=== PATIENT | male | born 1975 | race Hispanic/Latino ===

== ENCOUNTER 2018-10-13 15:11 | Emergency (ER) | payer SELFPAY ==
[2018-10-13 16:04] LABS: Hemoglobin 15.5 g/dL (14.0-18.0); Mean Corpuscular HGB CONC 34.1 g/dL (32.0-36.0); Mean Corpuscular Volume 93.8 fL (78.0-98.0); Mean Platelet Volume 11.2 fL (7.4-10.4); Platelet Count 188 thou/uL (130-400); RBC Distribution Width 12.1 % (11.5-14.5); Red Blood Cell (RBC) Count 4.86 mill/uL (4.70-6.10)
[2018-10-13 16:21] LABS: ALT (SGPT) 33 U/L (8-55); AST (SGOT) 13 U/L (5-34); Alkaline Phosphatase 155 U/L (40-150); Anion Gap 15 mmol/L (10-20); BUN (Urea Nitrogen) 9 mg/dL (8.9-20.6); Calc. Creatinine Clearance 0 mL/min (70-130); Calcium 9.7 mg/dL (7.8-10.44); Carbon Dioxide 19 mmol/L (22-29); Chloride 99 mmol/L (98-107); Estimated GFR-MDRD Greater than 90; Globulin 3.7 g/dL (2.4-3.5); Glucose 357 mg/dL (70-105); Lipase 115 U/L (8-78); Potassium 4.1 mmol/L (3.5-5.1); Protein, Total 7.7 g/dL (6.0-8.3); Sodium 129 mmol/L (136-145)
[2018-10-13] MEDS ORDERED: Ondansetron PF 4 MG/2 ML Vial ONE (16:31)
[2018-10-13] MEDS ORDERED: Morphine 2 MG/ML SYRINGE ONE (16:31)
[2018-10-13 16:32] LABS: Band 4 % (5-11); Eosinophils 2 % (0-10); Lymphocytes 5 % (21-51); MDiff Complete? YES; Monocytes 3 % (0-10); Neutrophil 86 % (42-75); PLT Morphology Comment Appears Adequate
[2018-10-13 16:41] LABS: Bilirubin Negative (Negative); Blood, Urine Trace (Negative); Clarity CLEAR (Clear); Glucose, Urine (Dipstick) >=1000 mg/dL (Negative); Leukocyte Negative (Negative); Nitrite Negative (Negative); Protein, Urine (Dipstick) 30 mg/dL (Neg-Trace); Specific Gravity, Urine 1.044 (1.002-1.036); Urobilinogen 0.2 mg/dL (0.2-1.0); pH, Urine 5.5 (5.0-9.0)
[2018-10-13 16:43] LABS: Bacteria/HPF None Seen HPF (None Seen); Hyaline Casts/LPF 0-3 HYALINE CAST LPF (0-3 Hyaline); RBC/HPF 0-3 HPF (0-3); Squamous Epithelial 0-3 HPF (0-3); WBC/HPF 0-3 HPF (0-3)
--- NOTE | 2018-10-13 16:55 | RAD ---
PORTABLE CHEST: Date: 10/13/18 PROVIDED CLINICAL HISTORY: Shortness of breath and generalized weakness. FINDINGS: Comparison with 02/17/17. Cardiac and mediastinal silhouette is within normal limits. There is no focal consolidation, pleural fluid, or pneumothorax apparent. IMPRESSION: No evidence for an acute cardiopulmonary process. POS: OFF
[2018-10-13 18:33] LABS: Glucose Accucheck Confirmation 269 mg/dl (70-105)
== END 2018-10-13 19:57 | disposition home or self-care (01) ==
LOC: ERS 15:11
DX: E86.0 Dehydration (principal); E11.9 Type 2 diabetes mellitus without complications; F17.210 Nicotine dependence, cigarettes, uncomplicated
CPT/HCPCS: 36415; 71045; 80053; 81003; 81015; 83690; 85025; 93005; 96361; 96374; 96375; J2270; J2405

== ENCOUNTER 2018-10-31 07:59 | Inpatient (IN) | payer SELFPAY ==
[2018-10-31 08:43] LABS: #Lymphocytes 1.6 thou/uL (1.20-3.40); #Monocytes 0.5 thou/uL (0.11-0.59); #Neutrophils 12.2 thou/uL (1.40-6.50); %Basophils 0.2 % (0.0-1.0); %Eosinophils 0.2 % (0.0-10.0); %Monocytes 3.4 % (0.0-10.0); %Neutrophils 85.1 % (42.0-75.0); Hemoglobin 15.7 g/dL (14.0-18.0); Mean Corpuscular Volume 91.4 fL (78.0-98.0); Mean Platelet Volume 11.2 fL (7.4-10.4); Platelet Count 185 thou/uL (130-400); RBC Distribution Width 12.6 % (11.5-14.5); Red Blood Cell (RBC) Count 4.91 mill/uL (4.70-6.10); White Blood Cell (WBC) Count 14.4 thou/uL (4.8-10.8)
[2018-10-31 08:51] LABS: ALT (SGPT) 32 U/L (8-55); AST (SGOT) 16 U/L (5-34); Alkaline Phosphatase 165 U/L (40-150); Anion Gap 23 mmol/L (10-20); BUN (Urea Nitrogen) 7 mg/dL (8.9-20.6); Bilirubin, Total 0.8 mg/dL (0.2-1.2); Calc. Creatinine Clearance 0 mL/min (70-130); Carbon Dioxide 13 mmol/L (22-29); Chloride 100 mmol/L (98-107); Estimated GFR-MDRD Greater than 90; Globulin 4.2 g/dL (2.4-3.5); Glucose 281 mg/dL (70-105); Potassium 4.1 mmol/L (3.5-5.1); Protein, Total 8.2 g/dL (6.0-8.3); Sodium 132 mmol/L (136-145)
[2018-10-31] MEDS ORDERED: Nicotine 21 MG PATCH TD PRN ×2 (09:00→13:40)
[2018-10-31 09:22] LABS: Lactic Acid 1.2 mmol/L (0.5-2.2)
[2018-10-31 09:28] LABS: Bicarbonate (HCO3v) 21.5 mmol/L (22.0-29.0); CO2 Tension (PvCO2) 33.2 mmHg (41.0-51.0); Calcium, Ionized 1.11 mmol/L (1.12-1.32); Hemoglobin - Calc 16.5 g/dL (12.0-18.0); O2 Tension (PvO2) 89.3 mmHg (35.0-45.0); T. Carbon Dioxide 22.6 mmol/L (1.0-85.0); vO2 Saturation-calc 97.2 % (94-98)
[2018-10-31] MEDS ORDERED: Morphine 4 MG/ML VIAL ONE (10:16)
--- NOTE | 2018-10-31 10:58 | CT ---
CT ABDOMEN WITH CONTRAST CT PELVIS WITH CONTRAST: DATE: 10/31/18 HISTORY: 43-year-old male with lower abdominal pain. COMPARISON: 02/17/17. TECHNIQUE: IV injection of iodinated contrast media: 100 mL [id number]. Oral contrast media: Not administered. FINDINGS: In a similar appearance to that of the previous CT, the head of the pancreas is enlarged, and surroun ded by extensive fat stranding representing edema fluid. The adjacent portions of the duodenum that a re in contact with this, namely the second stage and proximal third stage, have diffuse mural thicken ing. No pancreatic ductal dilation. Normal pancreatic body and tail. Diffusely low hepatic attenuation consistent with fatty liver. Bilateral kidneys, abdominal aorta, ad renals, spleen, appendix, and urinary bladder are normal. Multiple sigmoid and descending colonic div erticulosis without diverticulitis. No organized fluid collection. No small bowel dilation. No free f luid within the pelvic cavity. No pneumoperitoneum. Lung bases are grossly clear. IMPRESSION: 1. Recurrent acute pancreatitis. 2. No evidence of pancreatic pseudocyst or abscess. 3. Hepatic steatosis. JNR POS: ADONIS
[2018-10-31 11:18] LABS: Bilirubin Negative (Negative); Blood, Urine Negative (Negative); Clarity CLEAR (Clear); Glucose, Urine (Dipstick) >=1000 mg/dL (Negative); Leukocyte Negative (Negative); Nitrite Negative (Negative); Protein, Urine (Dipstick) 30 mg/dL (Neg-Trace); Urobilinogen 0.2 mg/dL (0.2-1.0); pH, Urine 5.5 (5.0-9.0)
[2018-10-31 11:21] LABS: Bacteria/HPF None Seen HPF (None Seen); Hyaline Casts/LPF 0-3 HYALINE CAST LPF (0-3 Hyaline); RBC/HPF 0-3 HPF (0-3); Squamous Epithelial 0-3 HPF (0-3); WBC/HPF 0-3 HPF (0-3)
[2018-10-31 11:24] LABS: Specific Gravity, Urine 1.045 (1.002-1.036)
[2018-10-31] MEDS ORDERED: Bisacodyl 5 MG TAB PO PRN (13:40)
[2018-10-31] MEDS ORDERED: Loperamide HCl 2 MG CAP PO PRN (13:40)
[2018-10-31] MEDS ORDERED: Acetaminophen 325 MG TAB PO PRN (13:40)
[2018-10-31] MEDS ORDERED: Bisacodyl 10 MG SUPP PR PRN (13:40)
[2018-10-31] MEDS ORDERED: Eucerin (Mineral Oil/Petrolatum,White) 30 gm Jar TOP PRN (13:40)
[2018-10-31] MEDS ORDERED: HumaLOG 300 UNITS/3 ML VIAL SC PRN (13:40)
[2018-10-31] MEDS ORDERED: Cepastat Lozenges 1 LOZ PO PRN (13:40)
[2018-10-31] MEDS ORDERED: Loratadine 10 MG TAB PO PRN (13:40)
[2018-10-31] MEDS ORDERED: Ondansetron PF 4 MG/2 ML Vial IVP PRN (13:40)
[2018-10-31] MEDS ORDERED: Zolpidem Tartrate 5 MG TAB PO PRN (13:40)
[2018-10-31] MEDS ORDERED: Ondansetron ODT 4 MG TAB PO PRN (13:40)
[2018-10-31] MEDS ORDERED: HYDROcodone/Acetaminophen 5/325 mg Tablet PO PRN (13:40)
[2018-10-31] MEDS ORDERED: Artificial Tears 18 DROP/0.9 ML EA EYE PRN (13:40)
[2018-10-31] MEDS ORDERED: Dextrose 5% in Water 1,000 ML IV PRN (13:40)
[2018-10-31] MEDS ORDERED: Dextrose 50% Abboject 50 ML SYRINGE SLOW IVP PRN (13:40)
[2018-10-31] MEDS ORDERED: hydrALAZINE 20 MG/ML VIAL SLOW IVP PRN (13:40)
[2018-10-31] MEDS ORDERED: Diabetic Tussin 200 MG/10 ML UDCUP PO PRN (13:40)
[2018-10-31] MEDS ORDERED: Senokot S 8.6-50 MG TAB PO PRN (13:40)
[2018-10-31] MEDS ORDERED: Sodium Chloride 0.65% Nasal 44 ML BOT EA NARE PRN (13:40)
[2018-10-31] MEDS ORDERED: Morphine 4 MG/ML VIAL SLOW IVP PRN (13:40)
[2018-10-31 13:42] VITALS: BMI 29.2
[2018-10-31] MEDS: Sodium Chloride 0.9% 1,000 ML IV SCH ×2 (14:14→21:43)
--- NOTE | 2018-10-31 15:50 | HP ---
PRIMARY CARE PHYSICIAN: [facility] call admission. REASON FOR ADMISSION: Acute pancreatitis. HISTORY OF PRESENT ILLNESS: A 43-year-old male, who speaks Frisian only, but he has family friend presented with him who interpreted for me. The patient has a 2-week history of gradually increasing abdominal pain. For last 2 to 3 days, his abdominal pain has gotten worse. His abdominal pain is periumbilical radiating to back associated with nausea and vomiting. He also reports that with food, pain is getting worse. He denies any abdominal distention. He denies any fever or chills. He denies any alcohol abuse. He denies any new medication. He denies any herbal medication. He denies any joint pain. He denies any weight loss. He denies any diarrhea, constipation, melena, or hematochezia. The patient reports that he had this type of problem in past, but he is not able to tell more detail. He required hospitalization and he was told that he had pancreatitis and stayed in hospital for 3 days. REVIEW OF SYSTEMS: CONSTITUTIONAL: Negative for weight loss or gain, ability to conduct usual activities. SKIN: Negative for rash, itching. EYES: Negative for double vision, pain. ENT/MOUTH: Negative for nose bleeding, neck stiffness, pain, tenderness. CARDIOVASCULAR: Negative for palpitations, dyspnea on exertion, orthopnea. RESPIRATORY: Negative for shortness of breath, wheezing, cough, hemoptysis, fever or night sweats. GASTROINTESTINAL: Negative for poor appetite, abdominal pain, heartburn, nausea, vomiting, constipation, or diarrhea. GENITOURINARY: Negative for urgency, frequency, dysuria, nocturia. MUSCULOSKELETAL: Negative for pain, swelling. NEUROLOGIC/PSYCHIATRIC: Negative for anxiety, depression. ALLERGY/IMMUNOLOGIC: Negative for skin rash, bleeding tendency. Please see my HPI for pertinent positive and negative. All other review of system reviewed and negative expect as mentioned in the HPI. PAST MEDICAL HISTORY: Diabetes type 2 and history of pancreatitis. PAST SURGICAL HISTORY: Left elbow surgery. PAST PSYCHIATRIC HISTORY: Reviewed and negative. SOCIAL HISTORY: The patient is smoking one pack per day. He denies any alcohol abuse. He denies any other illicit drug abuse. FAMILY HISTORY: No family history of coronary artery disease, stroke, or cancer. ALLERGIES: NO KNOWN DRUG ALLERGIES. CURRENT HOME MEDICATIONS: Metformin 500 mg p.o. b.i.d. EMERGENCY ROOM COURSE: The patient has received IV fluid and he was given morphine for pain. PHYSICAL EXAMINATION: VITAL SIGNS: Currently, blood pressure 143/83, pulse 72, respiratory rate 18, temperature 98.7, saturation 96% on the room air. Weight 83.1 kg. GENERAL: The patient is currently alert and awake, in no obvious acute distress. HEAD: Normocephalic and atraumatic. EYES: Pupil, round, and reactive to light. Extraocular muscle intact. ENT: Oropharynx within normal limit. Moist mucous membrane. No oral lesion. No pharyngeal erythema. No exudate. NECK: Supple. No JVD. No thyromegaly. No carotid bruits. No jugular venous distention. LUNGS: Clear to auscultation without any rhonchi or rales. CARDIAC: S1 and S2, regular. No murmur. No gallop. No rub. ABDOMEN: Epigastric tenderness. No peritoneal sign. No guarding. No rigidity. No rebound. BACK: Unremarkable. No CVA tenderness. EXTREMITIES: Upper extremity; passive movement of all joints is normal. Lower extremity; no edema. Good distal pulsation. SKIN: No skin rash. HEMATOLOGICAL SYSTEM: No lymphadenopathy. NEUROLOGIC: Nonfocal examination. The patient moves all four limbs. Plantar bilateral flexor. PSYCHIATRIC: Normal affect. SIGNIFICANT LABORATORY DATA: CT abdomen and pelvis reviewed by me and consistent with fatty liver, acute pancreatitis. No evidence of pancreatic abscess or pseudocyst. CBC; WBC 14.4, hemoglobin 15.7, and platelet 185. ABG; pH 7.42, bicarbonate 21.5, CO2 of 33.2, and O2 of 89.3. BMP; sodium 132, potassium 4.1, chloride 100, carbon dioxide 13, anion gap 23, BUN 7, creatinine 0.75, glucose 281, calcium 9.0. LFT; AST 16, ALT 32, alkaline phosphatase 165, albumin 4.0, and lipase 11. Urinalysis; glycosuria, ketonuria, and serum ketones 1.87. ASSESSMENT AND PLAN: 1. Acute pancreatitis. I am suspecting his pancreatitis likely related with hypertriglyceridemia which we need to exclude. At this point, I will check lipid profile tomorrow morning. We will treat his acute pancreatitis in a standard fashion with n.p.o. except ice chips. His pain will be controlled with morphine p.r.n. basis. He will be given IV fluid with NS at 125 mL/hr. Incentive spirometry advised. He does not have any Benton sign, so does not suspect any gallbladder related problem, but we will obtain ultrasound gallbladder to look for any pathology. We will monitor his lipase. When the patient's pain is well controlled, at that point, we will start liquid diet and advance into low fat diabetic diet. At that point, we will consider discharging him home. 2. Hyponatremia, likely due to pseudohyponatremia or from volume depletion. We will continue with NS at 125 mL per hour and we will repeat BMP tomorrow. 3. Diabetes type 2, not well controlled. We will continue with insulin as per sliding scale per protocol. We will check hemoglobin A1c. 4. Metabolic acidosis, likely due to volume contraction. The patient will be given IV fluid. He also has mild serum ketones elevated. We will repeat BMP tomorrow and we will also repeat other electrolytes including magnesium and phosphorus. 5. Tobacco abuse disorder. Smoking cessation counseling given. Healthy lifestyle measures discussed with the patient. 6. Deep vein thrombosis prophylaxis, Lovenox 40 mg subcu daily. 7. Gastrointestinal prophylaxis, Pepcid 20 mg IV b.i.d. 8. Code status: The patient is full code. The patient does not have any surrogate decision maker. 9. Disposition plan: Based on clinical course, we are expecting the patient to stay in hospital 2 to 3 days. Job ID: [id number]
[2018-10-31] MEDS ORDERED: Iopamidol 370 76% 100 ML VIAL ONE (16:16)
[2018-10-31] MEDS: Famotidine/PF 20 mg/2ml Vial SLOW IVP SCH (21:13)
[2018-11-01 05:04] LABS: #Basophils 0.1 thou/uL (0.0-0.2); #Eosinphils 0.2 thou/uL (0.0-0.7); #Lymphocytes 2.2 thou/uL (1.20-3.40); #Monocytes 0.5 thou/uL (0.11-0.59); #Neutrophils 7.6 thou/uL (1.40-6.50); %Basophils 0.8 % (0.0-1.0); %Eosinophils 1.7 % (0.0-10.0); %Lymphocytes 21.1 % (21.0-51.0); %Monocytes 4.9 % (0.0-10.0); %Neutrophils 71.6 % (42.0-75.0); Hemoglobin 13.1 g/dL (14.0-18.0); Mean Corpuscular HGB CONC 35.2 g/dL (32.0-36.0); Mean Corpuscular Volume 93.8 fL (78.0-98.0); Mean Platelet Volume 10.5 fL (7.4-10.4); Platelet Count 167 thou/uL (130-400); RBC Distribution Width 12.8 % (11.5-14.5); Red Blood Cell (RBC) Count 3.98 mill/uL (4.70-6.10); White Blood Cell (WBC) Count 10.6 thou/uL (4.8-10.8)
[2018-11-01 05:24] LABS: ALT (SGPT) 20 U/L (8-55); AST (SGOT) 9 U/L (5-34); Albumin 3.3 g/dL (3.5-5.0); Alkaline Phosphatase 124 U/L (40-150); Anion Gap 13 mmol/L (10-20); BUN (Urea Nitrogen) 5 mg/dL (8.9-20.6); Bilirubin, Total 0.6 mg/dL (0.2-1.2); CRP (Inflammatory) 15.66 mg/dL (= or < 0.5); Calc. Creatinine Clearance 158 mL/min (70-130); Calcium 8.3 mg/dL (7.8-10.44); Carbon Dioxide 20 mmol/L (22-29); Cardiac Risk 12.6 (Less than 4.5); Chloride 104 mmol/L (98-107); Cholesterol 278 mg/dl (< 200 Desired); Estimated GFR-MDRD Greater than 90; Globulin 2.8 g/dL (2.4-3.5); Glucose 211 mg/dL (70-105); HDL Cholesterol 22 mg/dL (>60 Neg Risk); Lipase 138 U/L (8-78); Phosphorus 2.2 mg/dL (2.3-4.7); Potassium 3.3 mmol/L (3.5-5.1); Protein, Total 6.1 g/dL (6.0-8.3); Sodium 134 mmol/L (136-145); Triglycerides 928 mg/dL (Less than 150)
[2018-11-01] MEDS: Sodium Chloride 0.9% 1,000 ML IV SCH ×2 (05:45→08:10)
[2018-11-01] MEDS ORDERED: Sodium Phosphate 60 MEQ/15 ML VIAL IVPB SCH (07:45)
[2018-11-01] MEDS ORDERED: Potassium Chloride 20 MEQ TAB PO SCH (07:45)
[2018-11-01] MEDS ORDERED: SODIUM CHLORIDE 0.9% IVPB SCH (08:00)
[2018-11-01] MEDS ORDERED: SODIUM PHOSPHATE IVPB SCH (08:00)
[2018-11-01] MEDS: Famotidine/PF 20 mg/2ml Vial SLOW IVP SCH (08:07)
[2018-11-01] MEDS: Enoxaparin Sodium 40 MG/0.4 ML SYRINGE SC SCH ×2 (08:10→13:01)
--- NOTE | 2018-11-01 08:42 | ULT ---
RIGHT UPPER QUADRANT ULTRASOUND: Date: 11/01/18 INDICATION: Abdominal pain, pancreatitis. COMPARISON: CT abdomen and pelvis dated 10/31/18 and a right upper quadrant ultrasound dated 02/17/17. FINDINGS: There is diffuse prominent fatty infiltration of the liver. There are low level echoes within the gal lbladder with mild pericholecystic fluid. There is a results technician report of a positive sonographic Murp hy's sign. Common bile duct is dilated measuring 8.8 mm. Pancreas is obscured. Right kidney measures 11.4 cm in length, without evidence of hydronephrosis. IMPRESSION: Gallbladder sludge seen within the gallbladder. There is no overt gallbladder wall thickening. There is, however, pericholecystic fluid and mild ascites present within the abdomen. Some of this may be r elated to the patient's active pancreatitis. Common bile duct is mildly dilated, which also could be related to a distal obstructing process or possibly reactive swelling of the distal common bile duct due to the pancreatitis ongoing. Findings are equivocal for acute cholecystitis. Further evaluation w ith MRCP may be helpful to evaluate the common bile duct for a distal obstructing stone. ERCP is an a lternative. POS: ALICIA
--- NOTE | 2018-11-01 09:31 | PDOC.PN ---
- Subjective Encounter Start Date: 11/01/18 Encounter Start Time: 08:40 -: old records requested/rev Patient seen and examined. No new complaints. No overnight events he has less abdominal pain, no fever - Objective Resuscitation Status - Order Detail: 10/31/18 12:55 Resuscitation Status Routine Resuscitation Status: FULL: Full Resuscitation MAR Reviewed: Yes Vital Signs & Weight: Vital Signs (12 hours) Temp Pulse Resp BP Pulse Ox 11/01/18 08:06 98.8 F 78 16 114/71 95 11/01/18 03:00 99.0 F 81 18 111/67 95 Weight Weight 181 lb 8 oz I&O: 10/31/18 11/01/18 11/02/18 06:59 06:59 06:59 Intake Total 631 Balance 631 Result Diagrams: 11/01/18 04:37 11/01/18 04:37 Additional Labs: Accuchecks 11/01/18 10/31/18 10/31/18 05:50 21:13 16:24 POC Glucose 194 H 208 H 197 H 10/31/18 14:11 POC Glucose 218 H Radiology Reviewed by me: Yes (abdominal US noted) Phys Exam - Physical Examination Constitutional: NAD HEENT: PERRLA, moist MMs, sclera anicteric Neck: no JVD, supple Respiratory: no wheezing, no rales, no rhonchi Cardiovascular: RRR, no significant murmur, no rub Gastrointestinal: soft, no distention, positive bowel sounds periumbilical discomfort Musculoskeletal: no edema, pulses present Neurological: non-focal, normal sensation, moves all 4 limbs Psychiatric: normal affect, A&O x 3 Skin: no rash, normal turgor Dx/Plan (1) Acute pancreatitis Code(s): K85.90 - ACUTE PANCREATITIS WITHOUT NECROSIS OR INFECTION, UNSP Status: Acute (2) Abnormal gall bladder diagnostic imaging Code(s): R93.2 - ABNORMAL FINDINGS ON DX IMAGING OF LIVER AND BILIARY TRACT Status: Acute (3) Hypertriglyceridemia Code(s): E78.1 - PURE HYPERGLYCERIDEMIA Status: Acute (4) Hypokalemia Code(s): E87.6 - HYPOKALEMIA Status: Acute (5) Metabolic acidosis Code(s): E87.2 - ACIDOSIS Status: Acute (6) Diabetes type 2, controlled Code(s): E11.9 - TYPE 2 DIABETES MELLITUS WITHOUT COMPLICATIONS Status: Chronic (7) Tobacco abuse Code(s): Z72.0 - TOBACCO USE Status: Chronic - Plan cont current plan of care * start clear liquid diet * consult GI for further evaluation * add lopid * medication reviewed as below * symptomatic treatment * pain controlled. * repeat labs tomorrow Review of Systems - Review of Systems ENT: negative: Ear Pain, Ear Discharge, Nose Pain, Nose Discharge, Nose Congestion, Mouth Pain, Mouth Swelling, Throat Pain, Throat Swelling, Other Respiratory: negative: Cough, Dry, Shortness of Breath, Hemoptysis, SOB with Excertion, Pleuritic Pain, Sputum, Wheezing Cardiovascular: negative: chest pain, palpitations, orthopnea, paroxysmal nocturnal dyspnea, edema, light headedness, other Gastrointestinal: Abdominal Pain. negative: Nausea, Vomiting, Diarrhea, Constipation, Melena, Hematochezia, Other Genitourinary: negative: Dysuria, Frequency, Incontinence, Hematuria, Retention , Other Musculoskeletal: negative: Neck Pain, Shoulder Pain, Arm Pain, Back Pain, Hand Pain, Leg Pain, Foot Pain, Other Skin: negative: Rash, Lesions, Juan Carlos, Bruising, Other - Medications/Allergies Allergies/Adverse Reactions: Allergies Allergy/AdvReac Type Severity Reaction Status Date / Time No Known Drug Allergies Allergy Verified 10/31/18 13:50 Medications: Current Medications Acetaminophen (Tylenol) 650 mg PO Q4H PRN PRN Reason: Headache/Fever/Mild Pain (1-3) Hydrocodone Bitart/Acetaminophen ([place] 5/325) 1 tab PO Q4H PRN PRN Reason: Moderate Pain (4-6) Artificial Tears (Tears Naturale) 2 drop EA EYE PRN PRN PRN Reason: Dry Eyes Bisacodyl (Dulcolax) 10 mg PO DAILYPRN PRN PRN Reason: Constipation Bisacodyl (Dulcolax) 10 mg FL DAILYPRN PRN PRN Reason: Constipation Dextrose/Water (Dextrose 50%) 25 gm SLOW IVP PRN PRN PRN Reason: Hypoglycemia Enoxaparin Sodium (Lovenox) 40 mg SC 0900 [facility] Last Admin: 11/01/18 08:10 Dose: 40 mg Famotidine (Pepcid) 20 mg SLOW IVP Q12HR [facility] Last Admin: 11/01/18 08:07 Dose: 20 mg Glucagon (Glucagon) 1 mg IM PRN PRN PRN Reason: Hypoglycemia Guaifenesin (Robitussin Sf) 200 mg PO Q4H PRN PRN Reason: Cough Hydralazine HCl (Apresoline) 10 mg SLOW IVP Q4H PRN PRN Reason: SBP > 180 and HR < 70 Dextrose/Water (D5w) 1,000 mls @ 0 mls/hr IV .Q0M PRN PRN Reason: Hypoglycemia Sodium Chloride (Normal Saline 0.9%) 1,000 mls @ 125 mls/hr IV .Q8H [facility] Last Admin: 11/01/18 08:10 Dose: 1,000 mls Sodium Phosphate 15 meq/ (Sodium Chloride) 253.75 mls @ 42.292 mls/hr IVPB 0800 [facility] Stop: 11/01/18 13:59 Insulin Human Lispro (Humalog) 0 units SC .MODERATE SLIDING SC PRN PRN Reason: Moderate Correctional Scale Insulin Human Lispro (Humalog) 0 units SC .BEDTIME SLIDING SC PRN PRN Reason: Bedtime Correctional Scale Loperamide HCl (Imodium) 2 mg PO PRN PRN PRN Reason: Diarrhea/Loose Stools Loratadine (Claritin) 10 mg PO DAILYPRN PRN PRN Reason: Sinus Symptoms Metformin HCl (Glucophage) 500 mg PO BID [facility] Mineral Oil/White Petrolatum (Eucerin Cream) 0 gm TOP BIDPRN PRN PRN Reason: Dry Skin Morphine Sulfate (Morphine) 4 mg SLOW IVP Q3H PRN PRN Reason: Pain Nicotine (Nicoderm Patch) 21 mg TD DAILYPRN PRN PRN Reason: TO STOP SMOKING Ondansetron HCl (Zofran Odt) 4 mg PO Q6H PRN PRN Reason: Nausea/Vomiting Ondansetron HCl (Zofran) 4 mg IVP Q6H PRN PRN Reason: Nausea/Vomiting Senna/Docusate Sodium (Senokot S) 2 tab PO BID PRN PRN Reason: Constipation Sodium Chloride ([place] Nasal [place] 0.65%) 0 ml EA NARE QIDPRN PRN PRN Reason: Nasal Congestion Throat Lozenges (Cepastat Lozenges) 1 davin PO Q2H PRN PRN Reason: Sore Throat Zolpidem Tartrate (Ambien) 5 mg PO HSPRN PRN PRN Reason: Insomnia Last Admin: 10/31/18 21:13 Dose: 5 mg
[2018-11-01] MEDS: metFORMIN 500 MG TAB PO SCH ×2 (10:56→21:33)
[2018-11-01] MEDS: HumaLOG 300 UNITS/3 ML VIAL SC PRN ×2 (12:50→17:23)
[2018-11-01] MEDS: Gemfibrozil 600 MG TAB PO SCH (13:03)
--- NOTE | 2018-11-01 19:05 | CON ---
DATE OF CONSULTATION: HISTORY OF PRESENT ILLNESS: The patient is a 43-year-old gentleman, who was in his normal state of health until two weeks ago when he developed severe abdominal pain. He was seen in the emergency room and told that he did not have anything going on and was sent home. He returned yesterday for significant pain. He has had nausea and vomiting two weeks ago when his pain was severe, but none since. He reports he is hungry now. He is having normal bowel movements. He has not lost any weight. PAST MEDICAL HISTORY: Significant for idiopathic pancreatitis and diabetes mellitus for a short period of time. PAST SURGICAL HISTORY: Denies previous surgery. SOCIAL HISTORY: He does smoke 1 pack per day. He does not drink any alcohol. FAMILY HISTORY: Negative for pancreatitis, GI, or liver disease. ALLERGIES: NO KNOWN ALLERGIES. HOME MEDICATIONS: Include metformin 500 mg p.o. b.i.d., which he started 2 weeks ago. REVIEW OF SYSTEMS: Ten systems reviewed and were negative except for above. PHYSICAL EXAMINATION: GENERAL: Shows a well-developed, well-nourished, gentleman in no acute distress. VITAL SIGNS: Temperature 98.4, pulse 85, respiratory rate 16, and blood pressure 114/75. HEENT: Unremarkable. NECK: Supple. CHEST: Clear. CARDIOVASCULAR: Regular rate and rhythm. ABDOMEN: Soft and nontender without organomegaly or masses. Bowel sounds are present. Normoactive. RECTAL: Deferred. EXTREMITIES: Normal. NEUROLOGIC: Nonfocal. LABORATORY DATA: Laboratory shows initial white blood cell count of 14.8, hemoglobin is 15.7, and hematocrit of 44.8. Chemistries show lipase 2 weeks ago of about 115, on recheck during this hospitalization, his lipase was 711. Sodium is 134, potassium 3.3, CO2 of 20, glucose 211, phosphorus 2.2, and albumin 3.3. C-reactive protein 15.66. Triglycerides 928 and cholesterol 278. Lipase 138. Abdominopelvic CT showed recurrent acute pancreatitis. No evidence of pancreatic pseudocyst or abscess and hepatic steatosis. Abdominal ultrasound showed gallbladder sludge within the gallbladder, some pericholecystic fluid, and mild ascites present in the abdomen. Common duct is mildly dilated. ASSESSMENT: 1. Recurrent pancreatitis - I suspect this is secondary to hypertriglyceridemia. 2. Diabetes mellitus - Poorly controlled. 3. Abnormal ultrasound - I think these ultrasound changes are probably related to the patient's acute pancreatitis. RECOMMENDATIONS: 1. Okay to advance diet. 2. Would begin anti-hypertriglyceridemia medication. 3. Tight control of his diabetes. Job ID: [id number]
[2018-11-01] MEDS: Famotidine 20 MG TAB PO SCH (21:33)
[2018-11-02] MEDS: Sodium Chloride 0.9% 1,000 ML IV SCH (03:05)
[2018-11-02 05:44] LABS: #Eosinphils 0.2 thou/uL (0.0-0.7); #Monocytes 0.5 thou/uL (0.11-0.59); #Neutrophils 4.5 thou/uL (1.40-6.50); %Basophils 0.1 % (0.0-1.0); %Eosinophils 3.1 % (0.0-10.0); %Lymphocytes 27.9 % (21.0-51.0); %Monocytes 6.9 % (0.0-10.0); Hemoglobin 11.9 g/dL (14.0-18.0); Mean Corpuscular HGB CONC 34.5 g/dL (32.0-36.0); Mean Corpuscular Hemoglobin 32.9 pg (27.0-31.0); Mean Corpuscular Volume 95.1 fL (78.0-98.0); Mean Platelet Volume 10.9 fL (7.4-10.4); Platelet Count 138 thou/uL (130-400); RBC Distribution Width 12.6 % (11.5-14.5); Red Blood Cell (RBC) Count 3.61 mill/uL (4.70-6.10); White Blood Cell (WBC) Count 7.3 thou/uL (4.8-10.8)
[2018-11-02 06:01] LABS: Anion Gap 10 mmol/L (10-20); BUN (Urea Nitrogen) 7 mg/dL (8.9-20.6); Calc. Creatinine Clearance 165 mL/min (70-130); Calcium 8.4 mg/dL (7.8-10.44); Carbon Dioxide 23 mmol/L (22-29); Chloride 108 mmol/L (98-107); Estimated GFR-MDRD Greater than 90; Glucose 181 mg/dL (70-105); Lipase 77 U/L (8-78); Phosphorus 2.4 mg/dL (2.3-4.7); Potassium 4.1 mmol/L (3.5-5.1); Sodium 137 mmol/L (136-145)
[2018-11-02] MEDS: HumaLOG 300 UNITS/3 ML VIAL SC PRN (06:22)
[2018-11-02] MEDS ORDERED: Sodium Chloride 0.9% 1,000 ML IV SCH (07:30)
[2018-11-02 08:03] VITALS: BP 99/62; TEMP 97.9
[2018-11-02] MEDS: metFORMIN 500 MG TAB PO SCH (08:04)
[2018-11-02] MEDS: Gemfibrozil 600 MG TAB PO SCH (08:04)
[2018-11-02] MEDS: Famotidine 20 MG TAB PO SCH (08:04)
[2018-11-02] MEDS: Enoxaparin Sodium 40 MG/0.4 ML SYRINGE SC SCH (08:06)
--- NOTE | 2018-11-03 07:48 | PRG ---
DATE OF SERVICE: 11/02/2018 SUBJECTIVE: The patient is feeling well. He is eating well. He is having no abdominal pain. OBJECTIVE: VITAL SIGNS: Temperature 98.0, pulse 76, respiratory rate 16, and blood pressure 103/63. HEENT: Unremarkable. CHEST: Clear. CARDIOVASCULAR: Regular rate and rhythm. ABDOMEN: Soft and nontender, without organomegaly or masses. Bowel sounds are present, normoactive. LABORATORY DATA: Shows a hemoglobin of 11.9, hematocrit 34.4. Chemistries, glucose of 181. ASSESSMENT: 1. Pancreatitis secondary to hypertriglyceridemia. 2. Hypertriglyceridemia. RECOMMENDATIONS: 1. Tight control of his diabetes mellitus. 2. Treat hypertriglyceridemia. 3. Stable for discharge from GI standpoint. 4. We will sign off. Job ID: [id number]
--- NOTE | 2018-11-03 07:49 | DIS ---
DATE OF ADMISSION: 10/31/2018 DATE OF DISCHARGE: 11/02/2018 PRIMARY CARE PHYSICIAN: [facility] Call Admission. DISCHARGE DISPOSITION: Home. PRIMARY DISCHARGE DIAGNOSES: Acute pancreatitis, hypertriglyceridemia, hypokalemia, metabolic acidosis. SECONDARY DISCHARGE DIAGNOSES: Diabetes type 2, tobacco abuse disorder. PRIMARY PROCEDURE/OPERATION: None. RADIOLOGICAL INVESTIGATION: Abdomen and pelvis CT scan showed acute pancreatitis. Abdomen ultrasound showed gallbladder sludge. SIGNIFICANT LABORATORY DATA: WBC 7.3, hemoglobin 11.9, platelets 138. Sodium 137, potassium 4.1, BUN 7, creatinine 0.68, calcium 8.4, phosphorus 2.4, lipase 77. Urinalysis unremarkable. Serum ketone 1.87. DISCHARGE MEDICATIONS: 1. Metformin 500 mg p.o. b.i.d. 2. Pepcid 20 mg p.o. b.i.d. 3. lopid 600 mg p.o. b.i.d. 4. Glyburide 2.5 mg p.o. daily. CONTRAINDICATION: None. CODE STATUS: Full code. INPATIENT DECK OFFICER: Dr. Guthrie was consulted while in hospital. TEST RESULTS PENDING ON DISCHARGE: None. ALLERGIES: NO KNOWN DRUG ALLERGY. DISCHARGE PLAN: Post hospital, the patient will follow up with primary care physician in one week. The patient is instructed about diabetic, low-fat, low-cholesterol diet. HOSPITAL COURSE: A 43-year-old male, who has underlying history of diabetes. He was admitted for abdominal pain. His abdominal pain was periumbilical radiating to back. In the emergency room, CT abdomen and pelvis confirmed pancreatitis. He also had elevated lipase. His blood sugar was not well controlled. Rechecked lipid profile and found with hypertriglyceridemia, which was the culprit for acute pancreatitis. We also did abdominal ultrasound for gallbladder, which showed some abnormal finding and that is why we consulted ball sorter and they were not impressed with that abnormal finding and attribute it to be due to acute pancreatitis. That this patient also does not have any Benton sign, does not have any right upper quadrant pain, does not suspect any gallbladder etiology at all. The patient was hydrated with IV fluid and he was treated in standard fashion for acute pancreatitis with n.p.o., pain control with narcotics. Next day, lipase improved. We started clear liquid and advanced to full liquid diet and a regular diet. Necessary dietary instruction given through dietitian. The patient is doing completely normal. He is ambulatory, tolerating p.o. well , and his pain has completely subsided. He is hemodynamically stable. The patient is seen and examined at bedside today. All review of systems reviewed with him and negative. PHYSICAL EXAMINATION: VITAL SIGNS: Currently, temperature 97.9, pulse 69, blood pressure 99/62, saturation 96% on room air. Weight 181 pounds. GENERAL: The patient is currently alert, awake. No obvious acute distress. HEENT: Head; normocephalic, atraumatic. Eyes; pupils round, reactive to light. Extraocular muscle intact. ENT; oropharynx within normal limits. Moist mucous membranes. NECK: Supple. No JVD. No thyromegaly. No carotid bruit. LUNGS: Clear to auscultation without any rhonchi or rales. CARDIAC: S1, S2. Regular. ABDOMEN: Soft and benign without any tenderness. NEUROLOGIC: Nonfocal examination. All new medication prescription sent to the pharmacy. Total time spent on discharge, 31 minutes. Job ID: [id number] [facility]
== END 2018-11-02 10:23 | disposition home or self-care (01) | DRG 439 ==
LOC: ERS 07:59 → T4-A 12:08
PROVIDERS: ADMIT Internal Medicine; ATTEND Internal Medicine
DX: K85.90 Acute pancreatitis without necrosis or infection, unspecified (principal); E87.1 Hypo-osmolality and hyponatremia; E87.2 Acidosis; E11.9 Type 2 diabetes mellitus without complications; F17.210 Nicotine dependence, cigarettes, uncomplicated; E78.1 Pure hyperglyceridemia; E87.6 Hypokalemia; Z79.84 Long term (current) use of oral hypoglycemic drugs
CPT/HCPCS: 36415; 36416; 74177; 76705; 80048; 80053; 80061; 81003; 81015; 82010; 82330; 82803; 83036; 83605; 83690; 83735; 84100; 85025; 86140; 96361; 96374; J1650; J2270; J7050; S0028

== ENCOUNTER 2019-11-10 08:22 | Inpatient (IN) | payer SELFPAY ==
[2019-11-10 10:07] LABS: #Eosinphils 0.1 thou/uL (0.0-0.7); #Lymphocytes 1.8 thou/uL (1.20-3.40); #Monocytes 0.6 thou/uL (0.11-0.59); %Basophils 0.2 % (0.0-1.0); %Eosinophils 0.4 % (0.0-10.0); %Lymphocytes 12.3 % (21.0-51.0); %Monocytes 4.4 % (0.0-10.0); %Neutrophils 82.8 % (42.0-75.0); Band 3 % (5-11); Hemoglobin 15.2 g/dL (14.0-18.0); Lymphocytes 8 % (21-51); MDiff Complete? YES; Mean Corpuscular HGB CONC 36.2 g/dL (32.0-36.0); Mean Corpuscular Hemoglobin 33.5 pg (27.0-31.0); Mean Corpuscular Volume 92.6 fL (78.0-98.0); Mean Platelet Volume 11.7 fL (7.4-10.4); Monocytes 6 % (0-10); Neutrophil 83 % (42-75); Platelet Count 138 thou/uL (130-400); RBC Distribution Width 12.3 % (11.5-14.5); RBC Morphology Normal; Red Blood Cell (RBC) Count 4.53 mill/uL (4.70-6.10); White Blood Cell (WBC) Count 16.2 thou/uL (4.8-10.8)
[2019-11-10] MEDS ORDERED: Morphine 4 MG/ML VIAL ONE ×2 (10:07→12:25)
[2019-11-10 10:13] LABS: Bacteria/HPF None Seen HPF (None Seen); Bilirubin Negative (Negative); Blood, Urine Negative (Negative); Clarity Clear (Clear); Glucose, Urine (Dipstick) Greater than 1000 mg/dL (Negative); Leukocyte Negative Leu/uL (Negative); Nitrite Negative (Negative); Protein, Urine (Dipstick) 50 mg/dL (Neg-Trace); RBC/HPF 0-3 HPF (0-3); Squamous Epithelial 0-3 HPF (0-3); Urobilinogen Normal mg/dL (Less than 2)
[2019-11-10] MEDS ORDERED: Ondansetron PF 4 MG/2 ML Vial ONE (10:22)
[2019-11-10] MEDS ORDERED: Iopamidol-370 76% 500 ML 1 ML ONE (10:52)
[2019-11-10 11:10] LABS: Anion Gap 20 mmol/L (10-20); BUN (Urea Nitrogen) 7 mg/dL (8.9-20.6); Calc. Creatinine Clearance 0 mL/min (70-130); Carbon Dioxide 18 mmol/L (22-29); Chloride 106 mmol/L (98-107); Potassium 5.3 mmol/L (3.5-5.1); Sodium 139 mmol/L (136-145)
[2019-11-10 11:11] LABS: ALT (SGPT) 34 U/L (8-55); AST (SGOT) 31 U/L (5-34); Albumin 4.3 g/dL (3.5-5.0); Alkaline Phosphatase 175 U/L (40-110); Bilirubin, Total 0.7 mg/dL (0.2-1.2); Calcium 8.4 mg/dL (7.8-10.44); Estimated GFR-MDRD Greater than 90; Glucose 352 mg/dL (70-105); Lipase 445 U/L (8-78); Protein, Total 7.3 g/dL (6.0-8.3)
--- NOTE | 2019-11-10 11:23 | CT ---
CT ABDOMEN AND PELVIS WITH IV CONTRAST: HISTORY: Abdominal pain. COMPARISON: 10/31/2018 FINDINGS: The lung bases are clear. There is a 12 mm hyperenhancing focus in the posterior segment of the right lobe of the liver, close to the dome, likely a flash filling hemangioma. No calcified gallstones are seen. There is peripancreatic inflammatory change, most prominent surrounding the head of the pancre as and the second portion of the duodenum. No abnormally loculated fluid collections are seen to sugg est pseudo cyst formation. There is good opacification of the portal splenic veins without evidence o f thrombosis. The spleen, adrenal glands and kidneys are normal. No free air, free fluid or lymphadenopathy is seen in the abdomen or pelvis. There is a circumaortic left renal vein. A normal appearing appendix is present. There is no evidence of abnormal biliary yasmani robinson dilatation. IMPRESSION: Findings are consistent with acute pancreatitis and duodenitis. POS: ALICIA
[2019-11-10] MEDS ORDERED: Ondansetron PF 4 MG/2 ML Vial IVP PRN (13:26)
[2019-11-10 13:29] VITALS: BMI 26.6
[2019-11-10] MEDS ORDERED: Morphine 4 MG/ML VIAL SLOW IVP PRN (13:31)
--- NOTE | 2019-11-10 13:46 | PDOC.HHP ---
Hospitalist HPI - History of Present Illness Abdominal pain x 1 day History of Present Illness: 44 yo M with a PMH of Triglyceridemia, DM and prior pancreatitis due to high TGLs,who presented to the ER with c/o abd pain. Abd pain began this morning. It was severe and similar to his prior episode of pancreatitis. He denied fever or chills,chest pain or SOB, no diarrhea or constipation. He had some nausea but no vomiting. Of noteis that pt claims he was told he no longer diabetic so he stopped taking his DM meds. Pt presented to the ER where he was noted to have high TGl as well as pancreatitis noted on CT. Lipase was elevated. He has therefore been admitted for further evaluation. Hospitalist ROS - Review of Systems Constitutional: denies: fever, chills, sweats, weakness, malaise, other Eyes: denies: pain, vision change, conjunctivae inflammation, eyelid inflammation, redness, other ENT: denies: ear pain, ear discharge, nose pain, nose discharge, nose congestion , mouth pain, mouth swelling, throat pain, throat swelling, other Respiratory: denies: cough, dry, shortness of breath, hemoptysis, SOB with excertion, pleuritic pain, sputum, wheezing, other Cardiovascular: denies: chest pain, palpitations, orthopnea, paroxysmal noc. dyspnea, edema, light headedness, other Gastrointestinal: reports: nausea, abdominal pain. denies: vomiting, diarrhea, constipation, melena, hematochezia, other Genitourinary: denies: dysuria, frequency, incontinence, hematuria, retention, other Musculoskeletal: denies: neck pain, shoulder pain, arm pain, back pain, hand pain, leg pain, foot pain, other Skin: denies: rash, lesions, rudolph, bruising, other Neurological: denies: weakness, numbness, incoordination, change in speech, confusion, seizures, other Hospitalist History - Past Medical History Cardiac: reports: Hyperlipidemia Gastrointestinal: reports: Other (Pancreatitis) Endocrine: reports: Diabetes - Social History Smoking Status: Current every day smoker Alcohol: reports: None Drugs: reports: none Living Situation: With Family Activity level: independent ambulation - Exam General Appearance: NAD, awake alert Eye: PERRL, anicteric sclera ENT: normocephalic atraumatic, no oropharyngeal lesions, moist mucosa Neck: supple, symmetric, no JVD, no thyromegaly, no lymphadenopathy, no carotid bruit Heart: RRR, no murmur, no gallops, no rubs, normal peripheral pulses Respiratory: CTAB, no wheezes, no rales, no ronchi, normal chest expansion, no tachypnea, normal percussion Gastrointestinal: soft, tender to palpation. negative: non-tender, non- distended, normal bowel sounds, no palpable masses, no hepatomegaly, no splenomegaly, no bruit, no guarding, no rigidity, distended, diminished bowl sounds, voluntary guarding Extremities: no cyanosis, no clubbing, no edema Skin: normal turgor, no lesions, no rashes Neurological: cranial nerve grossly intact, normal sensation to touch, no weakness, no focal deficits, no new deficit Hospitalist Results - Labs Result Diagrams: 11/10/19 09:10 11/10/19 10:02 Lab results: WBC 16.2 thou/uL (4.8-10.8) H 11/10/19 09:10 Hgb 15.2 g/dL (14.0-18.0) 11/10/19 09:10 Hct 41.9 % (42.0-52.0) L 11/10/19 09:10 MCV 92.6 fL (78.0-98.0) 11/10/19 09:10 Plt Count 138 thou/uL (130-400) 11/10/19 09:10 Neutrophils % 82.8 % (42.0-75.0) H 11/10/19 09:10 Band Neuts % (Manual) 3 % (5-11) L 11/10/19 09:10 Sodium 139 mmol/L (136-145) 11/10/19 10:02 Potassium 5.3 mmol/L (3.5-5.1) H 11/10/19 10:02 Chloride 106 mmol/L (98-107) 11/10/19 10:02 Carbon Dioxide 18 mmol/L (22-29) L 11/10/19 10:02 BUN 7 mg/dL (8.9-20.6) L 11/10/19 10:02 Creatinine 0.86 mg/dL (0.7-1.3) 11/10/19 10:02 Glucose 352 mg/dL (70-105) H 11/10/19 10:02 Calcium 8.4 mg/dL (7.8-10.44) 11/10/19 10:02 Total Bilirubin 0.7 mg/dL (0.2-1.2) 11/10/19 10:02 AST 31 U/L (5-34) 11/10/19 10:02 ALT 34 U/L (8-55) 11/10/19 10:02 Alkaline Phosphatase 175 U/L (40-110) H 11/10/19 10:02 Serum Total Protein 7.3 g/dL (6.0-8.3) 11/10/19 10:02 Albumin 4.3 g/dL (3.5-5.0) 11/10/19 10:02 Lipase 445 U/L (8-78) H 11/10/19 10:02 Urine Ketones 100 mg/dL (Negative) A 11/10/19 Unknown Urine Blood Negative (Negative) 11/10/19 Unknown Urine Nitrite Negative (Negative) 11/10/19 Unknown Ur Leukocyte Esterase Negative Arnol/uL (Negative) 11/10/19 Unknown Urine RBC 0-3 HPF (0-3) 11/10/19 Unknown Urine WBC 4-6 HPF (0-3) A 11/10/19 Unknown Ur Squamous Epith Cells 0-3 HPF (0-3) 11/10/19 Unknown Urine Bacteria None Seen HPF (None Seen) 11/10/19 Unknown Hospitalist H&P A/P - Problem (1) Acute pancreatitis Code(s): K85.90 - ACUTE PANCREATITIS WITHOUT NECROSIS OR INFECTION, UNSP Status: Acute Qualifiers: Pancreatitis type: idiopathic Assessment and Plan: Likley due to high TGl. Bedside USS did not show acute finding on the GB. Will however get HIDA scan to clarify. Will keep pt NPO, control pain. Monitor for symp improvement. (2) Hypertriglyceridemia Code(s): E78.1 - PURE HYPERGLYCERIDEMIA Status: Acute Assessment and Plan: Pt has been counselled on diet and med compliance.Will resume Lopid, add statins. (3) Diabetes type 2, controlled Code(s): E11.9 - TYPE 2 DIABETES MELLITUS WITHOUT COMPLICATIONS Status: Chronic Qualifiers: Diabetes mellitus chcf insulin use: without adjunct faculty for medical terminology use Diabetes mellitus complication status: without complication Qualified Code(s): E11.9 - Type 2 diabetes mellitus without complications Assessment and Plan: Pt has been non complaint with his med. Have counselled on diet and med compliance. Pt is NPO now,so will resume meds when he is taking orally.For now, cover with SSI. (4) Metabolic acidosis Code(s): E87.2 - ACIDOSIS Status: Acute Assessment and Plan: Will hydrate aggressively. Monitor CO2. (5) Tobacco abuse Code(s): Z72.0 - TOBACCO USE Status: Chronic Assessment and Plan: Has been counseled.Will give Nicotine patch while in hospital. (6) Leucocytosis Code(s): D72.829 - ELEVATED WHITE BLOOD CELL COUNT, UNSPECIFIED Status: Acute Assessment and Plan: Possible reactive. No abx for now. Monitor WBC. (7) Hyperkalemia Code(s): E87.5 - HYPERKALEMIA Status: Acute Assessment and Plan: Monitor K for now. No active intervention needed at this time. - Plan Plan: PPx: SCD s and Pepcid. CODE status: Full. Dispo: Admit as inpatient.
[2019-11-10] MEDS ORDERED: Dextrose 5% in Water 1,000 ML IV PRN (13:59)
[2019-11-10] MEDS ORDERED: Dextrose 50% Abboject 50 ML SYRINGE SLOW IVP PRN (13:59)
[2019-11-10] MEDS ORDERED: Sodium Chloride 0.9% 1,000 ML IV SCH (14:00)
[2019-11-10] MEDS: HYDROcodone/Acetaminophen 7.5/325 mg Tablet PO PRN (14:04)
[2019-11-10] MEDS: Nicotine 21 MG PATCH TD SCH (16:04)
[2019-11-10] MEDS: Gemfibrozil 600 MG TAB PO SCH (16:04)
[2019-11-10] MEDS: Ketorolac Tromethamine 30 MG/ML VIAL IVP SCH (17:02)
[2019-11-10] MEDS: Sodium Chloride 0.9% 1,000 ML IV SCH (17:04)
[2019-11-10] MEDS: Famotidine 20 MG TAB PO SCH (20:39)
[2019-11-11] MEDS: Ketorolac Tromethamine 30 MG/ML VIAL IVP SCH ×4 (00:11→17:28)
[2019-11-11] MEDS: Acetaminophen 325 MG TAB PO PRN (00:51)
[2019-11-11] MEDS: Sodium Chloride 0.9% 1,000 ML IV SCH ×3 (05:09→17:29)
[2019-11-11 05:40] LABS: #Basophils 0.1 thou/uL (0.0-0.2); #Eosinphils 0.1 thou/uL (0.0-0.7); #Lymphocytes 1.6 thou/uL (1.20-3.40); #Monocytes 0.3 thou/uL (0.11-0.59); #Neutrophils 7.5 thou/uL (1.40-6.50); %Basophils 0.7 % (0.0-1.0); %Eosinophils 0.9 % (0.0-10.0); %Monocytes 3.5 % (0.0-10.0); %Neutrophils 77.9 % (42.0-75.0); Hemoglobin 15.8 g/dL (14.0-18.0); Mean Corpuscular HGB CONC 34.8 g/dL (32.0-36.0); Mean Corpuscular Hemoglobin 32.9 pg (27.0-31.0); Mean Corpuscular Volume 94.5 fL (78.0-98.0); Mean Platelet Volume 11.8 fL (7.4-10.4); Platelet Count 144 thou/uL (130-400); RBC Distribution Width 12.5 % (11.5-14.5); Red Blood Cell (RBC) Count 4.81 mill/uL (4.70-6.10); White Blood Cell (WBC) Count 9.7 thou/uL (4.8-10.8)
[2019-11-11 05:41] LABS: Anion Gap 20 mmol/L (10-20); BUN (Urea Nitrogen) 8 mg/dL (8.9-20.6); Calc. Creatinine Clearance 132 mL/min (70-130); Calcium 8.2 mg/dL (7.8-10.44); Carbon Dioxide 14 mmol/L (22-29); Chloride 103 mmol/L (98-107); Estimated GFR-MDRD Greater than 90; Glucose 329 mg/dL (70-105); Lipase 271 U/L (8-78); Magnesium 1.9 mg/dL (1.6-2.6); Potassium 4.1 mmol/L (3.5-5.1); Sodium 133 mmol/L (136-145)
[2019-11-11] MEDS: Gemfibrozil 600 MG TAB PO SCH ×2 (10:00→16:10)
[2019-11-11] MEDS: Famotidine 20 MG TAB PO SCH ×2 (10:00→20:22)
--- NOTE | 2019-11-11 10:52 | PRG ---
DATE OF SERVICE: 11/11/2019 SUBJECTIVE: The patient is seen and examined at the bedside. He does not speak any Lithuanian. His girlfriend is present . His pain has improved significantly. He did not vomit. He does not have any diarrhea. OBJECTIVE: VITAL SIGNS: Blood pressure is 132/82, pulse is 97, temperature is 98, respirations 20, and O2 saturation 96%. HEENT: Head is atraumatic, normocephalic. Eyes are PERRLA. Sclerae are nonicteric. Oral mucosa is moist. NECK: Supple. LUNGS: Clear. HEART: S1, S2 normal. No S3. No S4. No any murmur. ABDOMEN: Soft. Tender in the epigastric area. No guarding. No masses. EXTREMITIES: No clubbing, cyanosis, or edema. NEUROLOGICAL: He is alert and oriented x4. There is no any motor or sensory deficits. LABORATORY DATA: Labs showed normal CBC. Sodium of 133, potassium 4.1, chloride 103, CO2 of 14, BUN 8, creatinine 0.84, glucose is ranging from 231 to 352, calcium is 8.2, magnesium 1.9, lipase 271, amylase 89. IMPRESSION: 1. Acute pancreatitis. Apparently, the patient has a history of high triglycerides and he was on medications for that prior to this hospitalization. I did not see triglyceride level during this hospitalization in the computer. He is improved since yesterday. We are going to continue his IV fluids and pain management as needed. We will give him clear liquids today and he is supposed to have a HIDA scan to make sure there is no any problem with gallstones. 2. Diabetes mellitus type 2, uncontrolled. PLAN: We will add a long-acting insulin Lantus to his current regimen, which is just a sliding scale, mild. We will increase the IV rate and advance diet as tolerated. Job ID: [id number]
[2019-11-11] MEDS ORDERED: Insulin Glargine 10 UNITS in Pre-Filled Syringe 1 EACH SC SCH (11:00)
[2019-11-11] MEDS ORDERED: FLU VACC QS2019-20(6MOS UP)/PF 60 MCG/0.5 ML SYRINGE IM ONE (14:00)
[2019-11-11] MEDS ORDERED: Prevnar 13-Val Conj/PF 0.5 ML SYRINGE IM ONE (14:00)
[2019-11-11] MEDS: Nicotine 21 MG PATCH TD SCH (14:31)
--- NOTE | 2019-11-11 15:30 | NM ---
HEPATOBILIARY SCAN: HISTORY: Right upper quadrant pain. Acute pancreatitis. RADIOPHARMACEUTICAL: Technetium 99m mebrofenin 5.1 millicuries injected intravenously. FINDINGS: There is good tracer extraction by the liver with prompt excretion into the biliary tract and small b owel loops and normal filling of the gallbladder. The calculated gallbladder ejection fraction follow ing an oral fatty meal measures 6%. IMPRESSION: Chronic cholecystitis/gallbladder dyskinesia. POS: TPC
[2019-11-11] MEDS: HumaLOG 300 UNITS/3 ML VIAL SC PRN ×2 (16:09→20:47)
[2019-11-11] MEDS: HYDROcodone/Acetaminophen 7.5/325 mg Tablet PO PRN (20:22)
[2019-11-11] MEDS: Insulin Glargine 10 UNITS in Pre-Filled Syringe 1 EACH SC SCH (20:26)
[2019-11-12] MEDS: Ketorolac Tromethamine 30 MG/ML VIAL IVP SCH ×4 (00:04→17:45)
[2019-11-12] MEDS: Sodium Chloride 0.9% 1,000 ML IV SCH ×4 (00:04→20:37)
[2019-11-12] MEDS: HumaLOG 300 UNITS/3 ML VIAL SC PRN ×2 (05:16→20:36)
[2019-11-12 08:24] LABS: #Eosinphils 0.2 thou/uL (0.0-0.7); #Lymphocytes 1.6 thou/uL (1.20-3.40); #Monocytes 0.4 thou/uL (0.11-0.59); #Neutrophils 6.6 thou/uL (1.40-6.50); %Basophils 0.2 % (0.0-1.0); %Eosinophils 2.6 % (0.0-10.0); %Lymphocytes 17.9 % (21.0-51.0); %Monocytes 4.3 % (0.0-10.0); Mean Corpuscular HGB CONC 34.3 g/dL (32.0-36.0); Mean Corpuscular Hemoglobin 33.1 pg (27.0-31.0); Mean Corpuscular Volume 96.5 fL (78.0-98.0); Mean Platelet Volume 10.8 fL (7.4-10.4); Platelet Count 127 thou/uL (130-400); RBC Distribution Width 12.5 % (11.5-14.5); Red Blood Cell (RBC) Count 3.62 mill/uL (4.70-6.10); White Blood Cell (WBC) Count 8.8 thou/uL (4.8-10.8)
[2019-11-12 08:36] LABS: ALT (SGPT) 12 U/L (8-55); AST (SGOT) 9 U/L (5-34); Albumin 2.8 g/dL (3.5-5.0); Alkaline Phosphatase 95 U/L (40-110); Anion Gap 7 mmol/L (10-20); BUN (Urea Nitrogen) 12 mg/dL (8.9-20.6); Bilirubin, Total 0.6 mg/dL (0.2-1.2); Calc. Creatinine Clearance 153 mL/min (70-130); Calcium 8.1 mg/dL (7.8-10.44); Carbon Dioxide 24 mmol/L (22-29); Chloride 107 mmol/L (98-107); Estimated GFR-MDRD Greater than 90; Globulin 2.7 g/dL (2.4-3.5); Glucose 180 mg/dL (70-105); Potassium 3.4 mmol/L (3.5-5.1); Protein, Total 5.5 g/dL (6.0-8.3); Sodium 135 mmol/L (136-145)
[2019-11-12] MEDS: Gemfibrozil 600 MG TAB PO SCH ×2 (08:40→15:47)
[2019-11-12] MEDS: Insulin Glargine 10 UNITS in Pre-Filled Syringe 1 EACH SC SCH ×2 (08:40→20:35)
[2019-11-12] MEDS: Famotidine 20 MG TAB PO SCH ×2 (08:40→19:54)
[2019-11-12] MEDS ORDERED: Potassium Chloride 20 MEQ TAB PO SCH (10:45)
--- NOTE | 2019-11-12 10:48 | PRG ---
DATE OF SERVICE: 11/12/2019 SUBJECTIVE: The patient is seen and examined at the bedside. His abdominal pain is improved. He is tolerating his clear liquids without any problems. OBJECTIVE: VITAL SIGNS: Blood pressure is 104/64, pulse is 81, temperature is 98.4, maximal temperature is 99.5 for the last 24 hours, respirations 20, and O2 saturation is 98% on room air. HEENT: His head is atraumatic and normocephalic. Eyes are PERRLA. Sclerae are nonicteric. Oral mucosa is moist. NECK: Supple. LUNGS: Clear. HEART: S1 and S2, normal. ABDOMEN: Soft. Tender in the epigastric area at the mid portion of the abdomen. No guarding. No masses. EXTREMITIES: No clubbing, cyanosis, or edema. NEUROLOGICAL: He is alert and oriented x4. There are no any motor or sensory deficits. LABORATORY DATA: White count of 8.8, hemoglobin 12.0, hematocrit is 34.9, and platelet count is 127,000. Sodium of 135, potassium 3.4, chloride 107, CO2 of 24, BUN 12, creatinine 0.72. Glycemia is ranging from 216 to 398. Hemoglobin A1c is 11, total protein 5.5, and albumin 2.8. Lipase 110 and amylase is 30. HIDA scan showed chronic cholecystitis/gallbladder dyskinesia with ejection fraction calculated at 6%. IMPRESSION: 1. Acute recurrent pancreatitis with a positive HIDA scan for chronic cholecystitis. We will call General Surgery to evaluate his condition and make decision about possible cholecystectomy. We will continue IV fluids. 2. Diabetes mellitus, uncontrolled. His hemoglobin A1c came back at 11, although he was told a year ago that his diabetes is well controlled on just diet. He will require significant coverage for that after the discharge. For now, we will continue his sliding scale and insulin Lantus twice a day, he was started on yesterday. 3. Thrombocytopenia. We will hold his Lovenox. 4. Anemia. 5. Hypokalemia, on replacement. Job ID: [id number]
[2019-11-12] MEDS: Nicotine 21 MG PATCH TD SCH (12:17)
--- NOTE | 2019-11-12 16:15 | CON ---
DATE OF CONSULTATION: 11/12/2019 REQUESTING PHYSICIAN: Dr. Armijo. HISTORY OF PRESENT ILLNESS: This is a 44-year-old obese man with previous history of type 2 diabetes mellitus and pancreatitis, which was thought to be secondary to hypertriglyceridemia. The patient has done well since last year. He presented to the emergency department 2 days ago with recurrent generalized abdominal pain, which he describes as sharp without any radiation. Pain was associated with multiple episodes of nausea and 2 bouts of nonbilious emesis. He denies any fevers or chills. He denies any other change in his bowel habits. Workup on admission included CBC with 16,200 white blood cells, hemoglobin and hematocrit of 15.2 and 41.9 respectively. Platelet count 138,000. Metabolic profile obtained on admission included sodium 139, potassium 5.3, chloride 106, bicarb 18, BUN and creatinine of 7 and 0.86 respectively. Glucose was elevated at 352. Serum lipase was also elevated at 445. Triglyceride level greater than 3800 mg/dL. Cholesterol level was also 729 mg/dL. A CT scan of abdomen and pelvis was remarkable for inflammatory changes within the pancreas and adjacent duodenum consistent with acute pancreatitis. A HIDA scan was performed yesterday, which showed good tracer extraction by the liver and prompt excretion into the biliary tract and small bowel loops with a normal filling of the gallbladder. However, ejection fraction was markedly low at 6%. PAST MEDICAL HISTORY: Significant for poorly controlled type 2 diabetes mellitus, poorly controlled hyperlipidemia, and previous triglyceride-induced pancreatitis. PAST SURGICAL HISTORY: The patient denies any previous surgeries. SOCIAL HISTORY: He is , lives at home with his . He admits to over 15-pack years cigarette smoking and is considering tobacco cessation. He denies any ethanol or illicit drug abuse. FAMILY HISTORY: The patient denies any family history of coronary artery disease, cancer, or inflammatory bowel disease. Various members of extended family have diabetes mellitus. PRE-HOSPITAL MEDICATIONS: Include naproxen 220 mg p.o. t.i.d. p.r.n. pain. The patient is supposed to be on lipid reducing drugs as well as oral hypoglycemics, which he is noncompliant of. ALLERGIES: THE PATIENT HAS NO KNOWN DRUG ALLERGIES. REVIEW OF SYSTEMS: Ten-point review of systems essentially unremarkable except as stated in past medical history and chief complaint. PHYSICAL EXAMINATION: GENERAL: Reveals a 44-year-old man, who is otherwise coherent, interactive, and appears stated age. The patient is alert and oriented x3, appears to be in no acute distress at time of my evaluation. VITAL SIGNS: Today include blood pressure is 104/64, pulse is 81, respiratory rate is 20, temperature 98.4 degrees Fahrenheit, and oxygen saturation is 98% on room air. HEENT: Reveals normocephalic and atraumatic. Pupils are equal, round, and reactive to light and accommodation. Extraocular muscles are intact bilaterally. No scleral icterus is present. Oral mucosa is pink and moist. No lesions are noted. NECK: Supple. No palpable lymphadenopathy or thyromegaly present. HEART: Reveals regular rate and rhythm. No murmurs or gallops auscultated. LUNGS: Clear to auscultation bilaterally. Breathing, regular and nonlabored. ABDOMEN: Soft and obese, but nontender to palpation. Liver and spleen nonpalpable below costal margin. EXTREMITIES: Reveal 2+ radial and pedal pulses bilaterally. No ankle edema is present. NEUROLOGIC: Reveals no focal deficits present. LABORATORY FINDINGS: Today include CBC, which is now improved with 8800 white blood cells, hemoglobin and hematocrit of 12.0 and 34.9 respectively. Platelet count 127,000. Metabolic profile; sodium 133, potassium 4.1, chloride is 103, bicarb is 14, BUN is 8, creatinine 0.84, glucose is 329, magnesium is 1.9. Serum lipase is improving down to 271. IMAGING STUDIES: I did review the abdominal ultrasound obtained in January 2017 as well as November 2018, both of which were devoid of gallstones. However, biliary sludge is noted with normal common bile duct diameter. I have also reviewed the HIDA scan, which was obtained in this hospitalization, which is only remarkable for markedly abnormal ejection fraction at 6%. IMPRESSION: 1. Recurrent hypertriglyceridemia-induced acute pancreatitis, resolving. 2. Chronic acalculous cholecystitis with significant biliary dyskinesia. RECOMMENDATIONS: 1. Conservative management including continuation of lipid lowering drugs as well as aggressive management of the patient's type 2 diabetes mellitus, and expect there will be no further problems with regard to the biliary dyskinesia. 2. Alternatively, laparoscopic cholecystectomy could be considered. 3. The patient and his discussed the above options in presence of a options advisor and elected to proceed with laparoscopic cholecystectomy. 4. I have assured them that the laparoscopic cholecystectomy in no way will prevent the patient from having recurrent pancreatitis if his hyperlipidemia remains uncontrolled. 5. Additionally, I have informed the patient of the risks and benefits of proposed surgery to include, but not limited to bleeding, infection, injury to bile duct or surrounding structures. The patient and his have indicated understanding information provided today. His nurse was also present at bedside. 6. I have answered their questions. 7. The patient has granted consent for the surgical intervention. Thank you again, Dr. Armijo for allowing me the opportunity to participate in the care of this patient. Job ID: [id number]
[2019-11-12] MEDS: Acetaminophen 325 MG TAB PO PRN (17:40)
[2019-11-13] MEDS: Ketorolac Tromethamine 30 MG/ML VIAL IVP SCH ×3 (00:11→10:53)
[2019-11-13] MEDS: Sodium Chloride 0.9% 1,000 ML IV SCH ×3 (00:12→13:33)
[2019-11-13] MEDS: Gemfibrozil 600 MG TAB PO SCH (08:42)
[2019-11-13] MEDS: Famotidine 20 MG TAB PO SCH (08:42)
[2019-11-13] MEDS: Insulin Glargine 10 UNITS in Pre-Filled Syringe 1 EACH SC SCH (08:42)
--- NOTE | 2019-11-13 13:04 | PDOC.HOSPP ---
- Subjective Encounter Date: 11/13/19 Encounter Time: 08:30 Subjective: no abd pain or nausea, tolerating solid diet is amb in room - Objective Vital Signs & Weight: Vital Signs (12 hours) Temp Pulse Resp BP Pulse Ox 11/13/19 07:44 98.0 F 74 16 116/74 98 Weight Weight 180 lb 12.465 oz I&O: 11/12/19 11/13/19 11/14/19 06:59 06:59 06:59 Intake Total 360 Balance 360 Result Diagrams: 11/12/19 08:03 11/12/19 08:04 Additional Labs: Accuchecks 11/13/19 11/13/19 11/12/19 12:03 04:50 20:36 POC Glucose 178 H 144 H 243 H 11/12/19 17:15 POC Glucose 122 H Hospitalist ROS - Medication Medications: Active Medications Generic Name Dose Route Start Last Admin Trade Name Freq PRN Reason Stop Dose Admin Acetaminophen 650 mg 11/10/19 13:26 11/12/19 17:40 Tylenol PO 650 mg Q4H PRN Administration Headache/Fever/Mild Pain (1-3) Hydrocodone Bitart/Acetaminophen 1 tab 11/10/19 13:26 11/11/19 20:22 Amelia 7.5/325 PO 1 tab Q4H PRN Administration Moderate Pain (4-6) Famotidine 20 mg 11/10/19 21:00 11/13/19 08:42 Pepcid PO 20 mg BID LUDY Administration Gemfibrozil 600 mg 11/10/19 16:30 11/13/19 08:42 Lopid PO 600 mg BID-AC LUDY Administration Insulin Glargine 10 units/ 0.1 mls @ 0 mls/hr 11/12/19 09:00 11/13/19 08:42 Miscellaneous Medication SC 0.1 mls QAM LUDY Administration Insulin Glargine 10 units/ 0.1 mls @ 0 mls/hr 11/11/19 21:00 11/12/19 20:35 Miscellaneous Medication SC 0.1 mls HS LUDY Administration Sodium Chloride 1,000 mls @ 150 mls/hr 11/11/19 10:29 11/13/19 05:20 Normal Saline 0.9% IV 1,000 mls .Q6H40M LUDY Administration Insulin Human Lispro 0 units 11/10/19 13:59 11/12/19 20:36 Humalog SC 3 unit .MILD SLIDING SCALE PRN Administration Mild Correctional Scale Ketorolac Tromethamine 30 mg 11/10/19 18:00 11/13/19 10:53 Toradol IVP 11/15/19 18:01 Not Given Q6HR LUDY Morphine Sulfate 4 mg 11/10/19 13:31 11/10/19 20:44 Morphine SLOW IVP 4 mg Q4H PRN Administration Severe Pain (7-10) Nicotine 21 mg 11/10/19 13:30 11/12/19 12:17 Nicoderm Patch TD 21 mg Q24HR LUDY Administration Ondansetron HCl 4 mg 11/10/19 13:26 11/10/19 17:02 Zofran IVP 4 mg Q6H PRN Administration Nausea/Vomiting - Exam General Appearance: awake alert Eye: PERRL, anicteric sclera ENT: no oropharyngeal lesions, moist mucosa Neck: supple, no JVD Heart: RRR, no murmur Respiratory: no wheezes, no rales Gastrointestinal: soft, non-tender, non-distended, normal bowel sounds Extremities: no cyanosis, no edema Neurological: cranial nerve grossly intact, no focal deficits Psychiatric: normal affect, A&O x 3 Hosp A/P (1) Acute pancreatitis Code(s): K85.90 - ACUTE PANCREATITIS WITHOUT NECROSIS OR INFECTION, UNSP Status: Acute (2) Hypertriglyceridemia Code(s): E78.1 - PURE HYPERGLYCERIDEMIA Status: Acute (3) Metabolic acidosis Code(s): E87.2 - ACIDOSIS Status: Resolved (4) Diabetes type 2, controlled Code(s): E11.9 - TYPE 2 DIABETES MELLITUS WITHOUT COMPLICATIONS Status: Chronic Qualifiers: Diabetes mellitus intermediate insulin use: without local intermodal truck driver use Diabetes mellitus complication status: without complication Qualified Code(s): E11.9 - Type 2 diabetes mellitus without complications (5) Tobacco abuse Code(s): Z72.0 - TOBACCO USE Status: Chronic - Plan triglyceride levels today, if normal may dc home change his lopid to tricor (is more affordable and less interaction with statins ), lipitor, fish oil metformin 500mg bid hemostable encourage po fluid intake toradol prn
[2019-11-13] MEDS: Nicotine 21 MG PATCH TD SCH (13:31)
--- NOTE | 2019-11-13 15:24 | DIS ---
DATE OF ADMISSION: 11/10/2019 DATE OF DISCHARGE: 11/13/2019 DISCHARGE DISPOSITION: Home. PRIMARY DISCHARGE DIAGNOSES: Acute pancreatitis, hypertriglyceridemia, metabolic acidosis, resolved; diabetes mellitus, type 2, uncontrolled; tobacco abuse. PROCEDURES DONE DURING HOSPITALIZATION: Abdominal and pelvic CAT scan done on the day of admission showed findings consistent with acute pancreatitis and duodenitis. HIDA scan done showed chronic cholecystitis with gallbladder dyskinesia. Ejection fraction was 6% on the gallbladder. H and H of 12 and 34, platelet count 127. Discharge triglyceride levels were 433, admitting triglyceride was greater than 3800 mg/dL. Lipase was 80 this morning. Amylase was 20. BUN is 12, creatinine 0.7, albumin 2.8. Total cholesterol was 278, HDL was 22. DISCHARGE MEDICATIONS: 1. Tricor 48 mg p.o. daily. 2. Lipitor 40 mg p.o. at bedtime. 3. Fish oil 1000 mg p.o. daily. 4. Metformin 500 mg p.o. twice daily. ALLERGIES: NO KNOWN DRUG ALLERGIES. DISCHARGE PLAN: The patient to follow up with Mando Andrews nurse practitioner on 11/16/2019 at 1:15 p.m. BRIEF COURSE DURING HOSPITALIZATION: The patient initially got admitted with complaints of abdominal pain, which was very severe. His initial CAT scan was consistent with acute pancreatitis. The patient has had known history of hypertriglyceridemia with prior 2 episodes of pancreatitis and was not compliant with medications. He was kept n.p.o. and has had consultations with Dr. Quinonez for General Surgery as well. The patient had a CT of the abdomen done and HIDA scan done as well which showed gallbladder dyskinesis. As the patient did not have any intrahepatic biliary dilatation or stones, General Surgery was closely following him on the floor. The patient has been on solid fat-free diet from yesterday afternoon. He has been tolerating it well. 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 He has been cleared by General Surgery for discharge. The patient is advised to continue fat-free diet for another 2 weeks and to slowly introduce fat-containing food in moderation. Case Management consultation was requested for help with medications. His medications have been faxed to [facility] pharmacy and the patient will be getting the same prior to discharge. He needs to follow up with his primary care physician in 1 week. Also, the patient has been advised to check his fingerstick glucose twice daily and record to follow up with his primary care physician in 1 week. Please note, I have seen and examined the patient on the day of discharge. Job ID: [id number] MTDD
[2019-11-13 16:27] VITALS: BP 137/87; TEMP 98.8
[2019-11-13] MEDS ORDERED: metFORMIN 500 MG TAB PO SCH (17:00)
[2019-11-13] MEDS ORDERED: Atorvastatin Calcium 40 MG TAB PO SCH (21:00)
[2019-11-14] MEDS ORDERED: Fenofibrate 48 MG TAB PO SCH (09:00)
[2019-11-14] MEDS ORDERED: Fish Oil 1,000 MG CAP PO SCH (09:00)
== END 2019-11-13 16:25 | disposition home or self-care (01) | DRG 439 ==
LOC: ERS 08:22 → T4-B 12:19
PROVIDERS: ADMIT Hospitalist; ATTEND Hospitalist
PROC: 3E02340 Introduction of Influenza Vaccine into Muscle, Percutaneous Approach (ICD-10-PCS; principal; 2019-11-11)
PROC: 3E0234Z Introduction of Serum, Toxoid and Vaccine into Muscle, Percutaneous Approach (ICD-10-PCS; 2019-11-11)
DX: K85.80 Other acute pancreatitis without necrosis or infection (principal); E87.2 Acidosis; K86.1 Other chronic pancreatitis; G89.29 Other chronic pain; Z23 Encounter for immunization; F17.210 Nicotine dependence, cigarettes, uncomplicated; E78.1 Pure hyperglyceridemia; D72.829 Elevated white blood cell count, unspecified; E87.5 Hyperkalemia; E11.65 Type 2 diabetes mellitus with hyperglycemia; D64.9 Anemia, unspecified; D69.6 Thrombocytopenia, unspecified; E87.6 Hypokalemia; E66.9 Obesity, unspecified; K81.1 Chronic cholecystitis; K82.8 Other specified diseases of gallbladder; K29.80 Duodenitis without bleeding; Z68.26 Body mass index [BMI] 26.0-26.9, adult; Z91.14 Patient's other noncompliance with medication regimen
CPT/HCPCS: 36415; 36416; 74177; 78227; 80048; 80053; 81003; 81015; 82150; 82465; 83036; 83690; 83735; 84478; 85025; 96361; 96374; 96375; 96376; A9537; J1815; J1885; J2270; J2405; Q9967

== ENCOUNTER 2020-10-27 11:55 | Inpatient (IN) | payer SELFPAY ==
--- NOTE | 2020-10-27 12:26 | RAD ---
EXAM: Single view of the chest HISTORY: Chest pain COMPARISON: 10/13/2018 FINDINGS: Single view of the chest shows a normal sized cardiomediastinal silhouette. Bilateral pulm onary vascular enlargement is stable. There is no evidence of consolidation, mass, or pleural effusion. No acute osseous abnormality. IMPRESSION: No evidence of acute cardiopulmonary disease
[2020-10-27] MEDS ORDERED: Morphine 4 MG/ML VIAL ONE (12:30)
[2020-10-27] MEDS ORDERED: Mag-Al 1200 mg/1200 mg/30 ML UDCUP ONE (12:31)
[2020-10-27] MEDS ORDERED: Ondansetron PF 4 MG/2 ML Vial ONE (12:31)
[2020-10-27] MEDS ORDERED: Lidocaine Viscous Sol 2% 15 ml UD Cup ONE (12:31)
[2020-10-27 12:55] LABS: Hemoglobin 16.2 g/dL (14.0-18.0); MDiff Complete? YES; Mean Corpuscular HGB CONC 34.9 g/dL (32.0-36.0); Mean Corpuscular Hemoglobin 32.9 pg (27.0-31.0); Platelet Count 123 thou/uL (130-400); RBC Distribution Width 11.7 % (11.5-14.5); Red Blood Cell (RBC) Count 4.93 mill/uL (4.70-6.10); White Blood Cell (WBC) Count 15.7 thou/uL (4.8-10.8)
[2020-10-27 12:56] LABS: Band 2 % (5-11); Lymphocytes 11 % (21-51); Monocytes 2 % (0-10); Neutrophil 85 % (42-75); Platelet Morphology Comment Appears Adequate; RBC Morphology Normal
[2020-10-27 13:04] LABS: ALT (SGPT) 50 U/L (8-55)
[2020-10-27 14:05] LABS: Lipase 1874 U/L (8-78)
[2020-10-27 14:06] LABS: Carbon Dioxide 16 mmol/L (22-29); Chloride 108 mmol/L (98-107); Potassium 6.1 mmol/L (3.5-5.1); Sodium 138 mmol/L (136-145)
[2020-10-27 14:07] LABS: BUN (Urea Nitrogen) 11 mg/dL (8.9-20.6); Bilirubin, Total 0.4 mg/dL (0.2-1.2); Calc. Creatinine Clearance 0 mL/min (70-130); Calcium 8.2 mg/dL (7.8-10.44); Estimated GFR-MDRD Greater than 90; Glucose 205 mg/dL (70-105); Protein, Total 7.8 g/dL (6.0-8.3)
[2020-10-27 14:08] LABS: AST (SGOT) 53 U/L (5-34); Albumin 4.3 g/dL (3.5-5.0); Alkaline Phosphatase 120 U/L (40-110); Globulin 3.5 g/dL (2.4-3.5)
[2020-10-27 14:09] LABS: Anion Gap 20 mmol/L (10-20)
[2020-10-27 14:11] LABS: Critical Call Chemistry SAMPLE WAS HEMOLYSIS
[2020-10-27] MEDS ORDERED: Fentanyl 100 MCG/2 ML VIAL ONE (14:17)
--- NOTE | 2020-10-27 14:18 | ULT ---
US Gallbladder RUQ: 10/27/2020 1:46 PM CLINICAL HISTORY: Lower chest and epigastric abdominal pain. STUDY: Limited right upper quadrant ultrasound of abdomen. COMPARISON: 11/01/2018 FINDINGS: Liver: Size: Normal. Echogenicity: Hyperechoic consistent with hepatic steatosis. Contour: Smooth. Mass: None. Bile ducts: No intrahepatic or extrahepatic biliary dilatation. Common bile duct measures 6 mm. Gallbladder: Normal. Pancreas: Not well visualized. Right kidney: No pelvicalyceal dilatation. Right kidney measuring 12.3 cm in length. IMPRESSION: Fatty liver
[2020-10-27 16:14] LABS: Triglycerides Greater than 3800 mg/dL (Less than 150)
[2020-10-27 16:53] LABS: Sodium 137 mmol/L (136-145)
[2020-10-27 16:54] LABS: Chloride 107 mmol/L (98-107)
[2020-10-27] MEDS ORDERED: Morphine 2 MG/ML VIAL SLOW IVP PRN (16:57)
[2020-10-27 16:58] LABS: Carbon Dioxide 19 mmol/L (22-29)
[2020-10-27 16:59] LABS: BUN (Urea Nitrogen) 8 mg/dL (8.9-20.6); Calc. Creatinine Clearance 0 mL/min (70-130); Estimated GFR-MDRD Greater than 90; Glucose 192 mg/dL (70-105)
[2020-10-27 17:00] LABS: Calcium 7.1 mg/dL (7.8-10.44)
[2020-10-27 17:01] LABS: Potassium 6.8 mmol/L (3.5-5.1)
[2020-10-27] MEDS ORDERED: INSULIN REGULAR IN 0.9 % NACL 100 UNIT/100 ML BAG ONE (17:01)
[2020-10-27 17:03] LABS: Anion Gap 8 mmol/L (10-20)
[2020-10-27] MEDS ORDERED: Electrolyte Replacement Protocol IVPB SCH (17:25)
[2020-10-27] MEDS ORDERED: Acetaminophen 325 MG TAB PO PRN (17:29)
[2020-10-27] MEDS ORDERED: Ondansetron ODT 4 MG TAB PO PRN (17:29)
[2020-10-27] MEDS ORDERED: Calcium Carbonate 500 MG ChewTAB PO PRN (17:29)
[2020-10-27] MEDS ORDERED: Senokot S 8.6-50 MG TAB PO PRN (17:29)
[2020-10-27] MEDS ORDERED: Ondansetron PF 4 MG/2 ML Vial IVP PRN (17:29)
[2020-10-27] MEDS ORDERED: HUMULIN R 100 UNITS in Sodium Chloride 0.9% 100 ML IVPB SCH (17:30)
[2020-10-27 17:32] LABS: Hemoglobin A1c 7.3 % (4.0-6.0)
[2020-10-27 17:35] LABS: INR-International Normal Ratio 0.9; PTT 30.6 sec (22.9-36.1); Prothrombin Time 12.4 sec (12.0-14.7)
[2020-10-27 17:41] LABS: Magnesium 1.6 mg/dL (1.6-2.6)
[2020-10-27] MEDS ORDERED: cloNIDine 0.1 MG TAB PO PRN (17:47)
--- NOTE | 2020-10-27 17:53 | PDOC.HHP ---
Hospitalist HPI - History of Present Illness Epigastric pain of 1 day duration History of Present Illness: Patient is a 45-year-old male with recurrent pancreatitis from hypertriglyceridemia, diabetes mellitus type 2 and medication noncompliance presented to the emergency room with above complaints. The epigastric/lower chest pain started this morning when he woke up. The pain was sharp, burning and radiating to his back. The pain was moderate to severe in intensity associated with nausea. He denies any vomiting. He had mild diaphoresis this morning that has resolved. He denies any alcohol use. He tried taking Advil without much relief. He denies any palpitations, lightheadedness, fever or chills. He is noncompliant with any medications. Patient was discharged from this facility in November 19 with a diagnosis of acute pancreatitis due to hypertriglyceridemia on Metformin and TriCor. In the emergency room his initial vital signs showed temperature 97.6, respiration of 16, pulse rate of 61, blood pressure of 133/87 with O2 saturation of 98% on room air. His work-up was consistent with acute pancreatitis with elevated triglyceride. He was started on IV fluids and insulin drip. He also received morphine, GI cocktail and Zofran in the emergency room PAST MEDICAL HISTORY: Uncontrolled diabetes mellitus type 2, history of acute pancreatitis due to high triglyceride, tobacco dependence PAST SURGICAL HISTORY: Left elbow surgery ALLERGIES: No known drug allergies SOCIAL HISTORY: Smokes up to 1 pack a day. Denies any alcohol or drug use. Currently lives at home with his family FAMILY HISTORY: Denies any family history of heart disease or GI malignancy Hospitalist ROS - Review of Systems Constitutional: reports: weakness. denies: fever, chills, sweats, malaise, other Skin: denies: rash, lesions, rudolph, bruising, other All other systems reviewed; all pertinent +/- noted in HPI/Subj - Medication Medications: Reviewed with the patient and none - Exam General Appearance: awake alert General - other findings: Mild distress due to abdominal pain Eye: PERRL, anicteric sclera ENT: normocephalic atraumatic, no oropharyngeal lesions, dry oral mucosa Neck: supple, symmetric, no JVD, no thyromegaly Heart: RRR, no gallops, no rubs, normal peripheral pulses Respiratory: no wheezes, no rales, no ronchi, normal chest expansion Gastrointestinal: soft, normal bowel sounds, no guarding, no rigidity, tender to palpation (Epigastric region) Extremities: no cyanosis, no clubbing, no edema Skin: normal turgor, no lesions Neurological: normal sensation to touch, no weakness, no new deficit Musculoskeletal: normal tone, generalized weakness Psychiatric: normal affect, A&O x 3 Hospitalist Results - Labs Result Diagrams: 10/27/20 12:12 10/27/20 16:14 Lab results: WBC 15.7 thou/uL (4.8-10.8) H 10/27/20 12:12 Hgb 16.2 g/dL (14.0-18.0) 10/27/20 12:12 Hct 46.3 % (42.0-52.0) 10/27/20 12:12 MCV 94.0 fL (78.0-98.0) 10/27/20 12:12 Plt Count 123 thou/uL (130-400) L 10/27/20 12:12 Band Neuts % (Manual) 2 % (5-11) L 10/27/20 12:12 Sodium 137 mmol/L (136-145) 10/27/20 16:14 Potassium 6.8 mmol/L (3.5-5.1) H* 10/27/20 16:14 Chloride 107 mmol/L (98-107) 10/27/20 16:14 Carbon Dioxide 19 mmol/L (22-29) L 10/27/20 16:14 BUN 8 mg/dL (8.9-20.6) L 10/27/20 16:14 Creatinine 0.76 mg/dL (0.7-1.3) 10/27/20 16:14 Glucose 192 mg/dL (70-105) H 10/27/20 16:14 Lactic Acid 2.0 mmol/L (0.5-2.2) 10/27/20 15:37 Calcium 7.1 mg/dL (7.8-10.44) L 10/27/20 16:14 Total Bilirubin 0.4 mg/dL (0.2-1.2) 10/27/20 12:12 AST 53 U/L (5-34) H 10/27/20 12:12 ALT 50 U/L (8-55) 10/27/20 12:12 Alkaline Phosphatase 120 U/L (40-110) H 10/27/20 12:12 Troponin I Less than 0.010 ng/mL (< 0.028) 10/27/20 12:12 Serum Total Protein 7.8 g/dL (6.0-8.3) 10/27/20 12:12 Albumin 4.3 g/dL (3.5-5.0) 10/27/20 12:12 Lipase 1874 U/L (8-78) H 10/27/20 12:12 Abnormal Lab Results - Last 48 hrs 10/27/20 12:12: Potassium 6.1 H, Chloride 108 H, Carbon Dioxide 16 L, AST 53 H, Alkaline Phosphatase 120 H, Lipase 1874 H 10/27/20 12:12: WBC 15.7 H, MCH 32.9 H, Plt Count 123 L, MPV 12.0 H, Neutrophils % (Manual) 85 H, Band Neuts % (Manual) 2 L, Lymphocytes % (Manual) 11 L 10/27/20 15:37: Triglycerides Greater than 3800 H 10/27/20 16:14: Potassium 6.8 H*, Carbon Dioxide 19 L, Anion Gap 8 L, BUN 8 L, Calcium 7.1 L 10/27/20 16:56: Hemoglobin A1c 7.3 H 10/27/20 16:56: Phosphorus 2.0 L - EKG Interpretation EKG: Sinus rhythm with incomplete right bundle branch blockreviewed by me - Radiology Interpretation Chest x-ray Status: image reviewed by me Additional Comment: Negative for infiltrate or edema US - abdomen Status: image reviewed by me Additional Comment: Fatty liver with 6 mm common bile duct. No obstruction Hospitalist H&P A/P - Plan Plan: Acute pancreatitis due to hypertriglyceridemia Metabolic acidosis Systemic inflammatory response syndrome due to above Dehydration Hypomagnesemia/hypophosphatemia Hyperkalemia due to metabolic acidosis Uncontrolled diabetes mellitus type 2 with medication noncompliance Fatty liver Thrombocytopenia Tobacco dependence Plan: IMCU monitoring. IV fluid with dextrose and sodium bicarbonate at 200 mL an hour. Insulin drip due to hypertriglyceridemia. Replace magnesium and phosphorus. Accu-Cheks every 1 hour. PPIs. Consult gastroenterology. Labs every 4 hours. Recheck lipase and triglyceride on the daily basis. Check serum osmolality. Ketones were negative. N.p.o. Patient was counseled on tobacco cessation. Also counseled on medication compliance.
[2020-10-27] MEDS ORDERED: Morphine 4 MG/ML VIAL SLOW IVP PRN (17:56)
[2020-10-27] MEDS ORDERED: Sodium Bicarb 50 MEQ/50 ML Abboject 8.4% SYRINGE IVP SCH (18:00)
[2020-10-27] MEDS ORDERED: Magnesium Sulfate 4 GM in Sodium Chloride 0.9% 250 ML 250 ML IVPB SCH (18:00)
[2020-10-27 18:36] VITALS: BMI 32.5
[2020-10-27] MEDS: Pantoprazole 40 MG VIAL IVP SCH (20:31)
[2020-10-27] MEDS: Sodium Bicarbonate 50 MEQ in Dextrose 5 %-0.45 % NaCl 1,000 ML IV SCH (20:32)
[2020-10-27] MEDS ORDERED: Famotidine/PF 20 mg/2ml Vial SLOW IVP SCH (21:00)
[2020-10-27] MEDS ORDERED: Famotidine 20 MG TAB PO SCH (21:00)
[2020-10-27] MEDS: traMADol HCl 50 MG TAB PO PRN (21:01)
[2020-10-27 21:18] LABS: Glucose 137 mg/dL (70-105)
[2020-10-27 21:19] LABS: Carbon Dioxide 17 mmol/L (22-29); Chloride 109 mmol/L (98-107); Potassium 4.1 mmol/L (3.5-5.1); Sodium 137 mmol/L (136-145)
[2020-10-27 21:20] LABS: Anion Gap 15 mmol/L (10-20); BUN (Urea Nitrogen) 7 mg/dL (8.9-20.6); Calc. Creatinine Clearance 182 mL/min (70-130); Estimated GFR-MDRD Greater than 90; Glucose 160 mg/dL (70-105)
[2020-10-27 21:21] LABS: Calcium 6.7 mg/dL (7.8-10.44)
[2020-10-27 22:29] LABS: Glucose 98 mg/dL (70-105)
[2020-10-27 23:28] LABS: Glucose 87 mg/dL (70-105)
[2020-10-28 00:43] LABS: Glucose 153 mg/dL (70-105)
[2020-10-28 01:39] LABS: Sodium 132 mmol/L (136-145)
[2020-10-28 01:40] LABS: Carbon Dioxide 16 mmol/L (22-29); Chloride 106 mmol/L (98-107); Potassium 4.6 mmol/L (3.5-5.1)
[2020-10-28 01:41] LABS: Anion Gap 15 mmol/L (10-20); BUN (Urea Nitrogen) 6 mg/dL (8.9-20.6); Calc. Creatinine Clearance 185 mL/min (70-130); Estimated GFR-MDRD Greater than 90
[2020-10-28 01:42] LABS: Calcium 6.4 mg/dL (7.8-10.44); Glucose 145 mg/dL (70-105)
[2020-10-28 01:57] LABS: Glucose 217 mg/dL (70-105)
[2020-10-28 03:00] LABS: Glucose 201 mg/dL (70-105)
[2020-10-28 04:02] LABS: #Basophils 0.1 thou/uL (0.0-0.2); #Lymphocytes 1.6 thou/uL (1.20-3.40); #Monocytes 0.5 thou/uL (0.11-0.59); #Neutrophils 9.6 thou/uL (1.40-6.50); %Basophils 0.7 % (0.0-1.0); %Eosinophils 0.2 % (0.0-10.0); %Lymphocytes 13.4 % (21.0-51.0); %Monocytes 4.1 % (0.0-10.0); %Neutrophils 81.6 % (42.0-75.0); Hemoglobin 16.1 g/dL (14.0-18.0); Mean Corpuscular HGB CONC 36.7 g/dL (32.0-36.0); Mean Corpuscular Hemoglobin 34.2 pg (27.0-31.0); Mean Corpuscular Volume 93.1 fL (78.0-98.0); Mean Platelet Volume 11.4 fL (7.4-10.4); Platelet Count 130 thou/uL (130-400); RBC Distribution Width 11.6 % (11.5-14.5); White Blood Cell (WBC) Count 11.7 thou/uL (4.8-10.8)
[2020-10-28 04:14] LABS: Glucose 189 mg/dL (70-105)
[2020-10-28 04:26] LABS: BUN (Urea Nitrogen) 4 mg/dL (8.9-20.6); Calc. Creatinine Clearance 198 mL/min (70-130); Calcium 7.3 mg/dL (7.8-10.44); Carbon Dioxide Less than 8 mmol/L (22-29); Chloride 102 mmol/L (98-107); Estimated GFR-MDRD Greater than 90; Glucose 185 mg/dL (70-105); Magnesium 2.6 mg/dL (1.6-2.6); Potassium 3.4 mmol/L (3.5-5.1); Sodium 129 mmol/L (136-145)
[2020-10-28 04:27] LABS: Phosphorus 1.8 mg/dL (2.3-4.7)
[2020-10-28] MEDS ORDERED: Sodium Bicarb 50 MEQ/50 ML Abboject 8.4% SYRINGE IVP SCH (05:00)
[2020-10-28] MEDS: Sodium Bicarbonate 50 MEQ in Dextrose 5 %-0.45 % NaCl 1,000 ML IV SCH ×4 (05:36→22:32)
[2020-10-28] MEDS ORDERED: Potassium Chloride 20 MEQ TAB PO SCH (06:30)
[2020-10-28 07:07] LABS: Anion Gap 23 mmol/L (10-20); BUN (Urea Nitrogen) 4 mg/dL (8.9-20.6); Calc. Creatinine Clearance 182 mL/min (70-130); Calcium 7.2 mg/dL (7.8-10.44); Carbon Dioxide 13 mmol/L (22-29); Chloride 102 mmol/L (98-107); Estimated GFR-MDRD Greater than 90; Glucose 137 mg/dL (70-105); Potassium 3.5 mmol/L (3.5-5.1); Sodium 134 mmol/L (136-145)
[2020-10-28] MEDS: Multivit, Therapeutic 1 TAB PO SCH (07:40)
[2020-10-28] MEDS: PHOS-NAK 1 PKT PACK PO SCH ×2 (07:40→11:49)
[2020-10-28] MEDS: Pantoprazole 40 MG VIAL IVP SCH ×2 (07:41→21:05)
[2020-10-28] MEDS: Enoxaparin Sodium 40 MG/0.4 ML SYRINGE SC SCH (07:41)
[2020-10-28 08:18] LABS: SARS-CoV-2 MS2 Positive; SARS-CoV-2 N Gene Negative; SARS-CoV-2 S Gene Negative; SARS-CoV-2 by NAA Not Detected (NotDetected); SARS-CoV-2 orf1ab Negative
[2020-10-28] MEDS ORDERED: FLU VACC QS2020-21(6MOS UP)/PF 60 MCG/0.5 ML SYRINGE IM ONE (09:00)
--- NOTE | 2020-10-28 09:27 | CON ---
DATE OF CONSULTATION: 10/28/2020 REQUESTING PHYSICIAN: Jimenez Bal MD. REASON FOR CONSULTATION: Hypertriglyceridemia, pancreatitis. HISTORY OF PRESENT ILLNESS: El Hernadez is a very pleasant, 45-year-old, Somali-speaking gentleman admitted yesterday with pancreatitis due to hypertriglyceridemia. He has a history of diabetes and ongoing tobacco abuse. He has also had a couple of prior episodes of pancreatitis secondary to hypertriglyceridemia. He had an episode in November 2018 and another in November 2019. He does not drink alcohol, but he does smoke about 1 pack of cigarettes per day. He does not take any medications at home, though he had been prescribed lipid-lowering therapy during previous admissions as well as metformin. He presented to the hospital yesterday with report of epigastric pain radiating to the back along with nausea. This started yesterday morning. It became quite severe, and Advil at home was not adequate for pain relief. Upon presentation, he was hemodynamically stable, but labs demonstrated lipase elevation to 1874 and triglycerides above the SA limits. He also was hyperkalemic with potassium up to 6.1. He was started on aggressive IV fluid resuscitation, sodium bicarb, and D5 at 200 mL/hour. He initially received some morphine. He was started on insulin at 8 units/hour. Overnight, he has been feeling a lot better. He did not require any more morphine. He is receiving tramadol. His abdominal pain is significantly improved. He remains a little bit nauseated, but has had no vomiting. He does not really have much appetite at this point. Triglycerides are down to 2544. Lipase down to 238. He had ultrasound imaging of the gallbladder which again showed normal gallbladder and common bile duct as had been seen on previous admissions. REVIEW OF SYSTEMS: Full review of systems including constitutional, head, eyes, ears, nose, throat, GI, , cardiovascular, respiratory, musculoskeletal, neurologic systems is negative except as noted in the HPI. PAST MEDICAL HISTORY: Diabetes type 2, nicotine dependence, left elbow surgery, hypertriglyceridemia, pancreatitis in November 2018 and again in November 2019, now again in October 2020. ALLERGIES: NO KNOWN DRUG ALLERGIES. OUTPATIENT MEDICATIONS: None. INPATIENT MEDICATIONS: 1. Lovenox 40 mg subcutaneously daily. 2. Insulin 8 units/hour. 3. Multivitamin with minerals daily. 4. Zofran p.r.n. 5. Pantoprazole 40 mg IV q.12 hours. 6. Potassium chloride 40 mEq this morning. 7. Sodium bicarbonate in dextrose 200 mL/hour. 8. Tramadol p.r.n. SOCIAL HISTORY: The patient smokes a pack of cigarettes per day. Denies alcohol or drug use. FAMILY HISTORY: Noncontributory. PHYSICAL EXAMINATION: VITAL SIGNS: Temperature 98.6, pulse 88, blood pressure 109/63, 97% oxygen saturation on room air. GENERAL: 45-year-old man, lying in bed comfortably in no distress. SKIN: No jaundice, no rashes were palpable. EYES: No scleral icterus. Extraocular movements intact. ENT: Mucous membranes moist. No oral lesions. LYMPH: No submandibular or supraclavicular lymphadenopathy. Thyroid nontender to palpation. HEART: Regular rate and rhythm. LUNGS: Clear to auscultation bilaterally. ABDOMEN: Nondistended. Bowel sounds present, though hypoactive. The abdomen is soft with some tenderness to palpation in the upper abdomen. No guarding or rebound tenderness. EXTREMITIES: No peripheral edema. VESSELS: Radial pulses 2+ bilaterally. NEURO: Cranial nerves II through XII intact bilaterally. No focal deficits. LABORATORY STUDIES: WBC is 11.7, hemoglobin 16.1, platelets 130. Sodium 134, potassium 3.5, BUN 4, creatinine 0.65, glucose 137. INR 0.9. Beta hydroxybutyrate 0.26. COVID PCR negative. On admission, lipase was 1874, now down to 238. Triglycerides on admission were greater than the SA limit, now down to 2544. Total bilirubin 0.4, alkaline phosphatase 120, AST 53, ALT 50, albumin 4.3. Hemoglobin A1c is 7.3. Lactic acid 2.0. IMAGING STUDIES: Chest x-ray showed no acute processes. Abdominal ultrasound showed fatty liver, but normal-appearing gallbladder and bile ducts with common bile duct only 6 mm in size. ASSESSMENT AND PLAN: Hypertriglyceridemia-induced pancreatitis, recurrent. The patient does not drink alcohol, and there is no evidence of biliary pathology. Triglycerides were above the SA limit, and this is similar to prior presentations in the past couple of years. This does appear to represent hypertriglyceridemia-induced pancreatitis. He has been treated appropriately overnight with insulin drip and aggressive IV fluids, n.p.o. status. He is already feeling a lot better this morning. Laboratory markers including BUN and hematocrit trends are favorable. In general, with hypertriglyceridemia-induced pancreatitis, insulin drip is maintained at 0.1-0.3 units/kg/hour, with goal triglyceride level below 500, frequent glucose checks to assure no significant hypoglycemia, increase the dextrose if so. For today, I would continue to keep him n.p.o. status, continue with the insulin drip. IV fluids might be reduced to 150 mL/hour. Recheck triglycerides tomorrow. If significantly further improved, at that point could consider trying to advance diet. I also discussed with the patient that he is going to need to be on triglyceride-lowering therapy such as TriCor going forward. It would also help if he quit smoking. Thank you for the consultation. GI can follow along. Please call anytime with questions or concerns. Job ID: [id number]
[2020-10-28 10:59] LABS: Glucose 117 mg/dL (70-105)
[2020-10-28 11:36] LABS: Glucose 111 mg/dL (70-105)
[2020-10-28] MEDS: traMADol HCl 50 MG TAB PO PRN ×2 (11:48→18:17)
[2020-10-28 12:53] LABS: Lactic Acid 1.5 mmol/L (0.5-2.2)
[2020-10-28] MEDS ORDERED: Sodium Phosphate 10 MMOL in Sodium Chloride 0.9% 250 ML 250 ML IVPB SCH (14:00)
[2020-10-28 14:09] LABS: Chloride 103 mmol/L (98-107); Potassium 3.8 mmol/L (3.5-5.1); Sodium 134 mmol/L (136-145)
[2020-10-28 14:10] LABS: Calcium 7.2 mg/dL (7.8-10.44); Glucose 151 mg/dL (70-105)
[2020-10-28 14:12] LABS: Anion Gap 17 mmol/L (10-20); Carbon Dioxide 18 mmol/L (22-29)
[2020-10-28 14:14] LABS: BUN (Urea Nitrogen) 5 mg/dL (8.9-20.6); Calc. Creatinine Clearance 191 mL/min (70-130); Estimated GFR-MDRD Greater than 90
--- NOTE | 2020-10-28 15:06 | PDOC.HOSPP ---
- Subjective Encounter Date: 10/28/20 Encounter Time: 09:15 Subjective: Patient seen and examined for acute pancreatitis due to hypertriglyceridemia. Abdominal pain improving. Had some nausea this morning that has improved. No diarrhea or jaundice reported denies any chest pain or shortness of breath - Objective Vital Signs & Weight: Vital Signs (12 hours) Temp 10/28/20 11:11 98.4 F 10/28/20 07:22 98.6 F Weight Weight 196 lb Most Recent Monitor Data Heart Rate from ECG 102 NIBP 108/69 NIBP BP-Mean 82 Respiration from ECG 29 SpO2 98 I&O: 10/27/20 10/28/20 10/29/20 06:59 06:59 06:59 Intake Total 1857.2 Output Total 1450 Balance 407.2 Result Diagrams: 10/28/20 03:22 10/28/20 13:13 Additional Labs: Accuchecks 10/27/20 10/27/20 17:54 17:15 POC Glucose 199 H 189 H Abnormal Lab Results - Last 48 hrs 10/27/20 12:12: Potassium 6.1 H, Chloride 108 H, Carbon Dioxide 16 L, AST 53 H, Alkaline Phosphatase 120 H, Lipase 1874 H 10/27/20 12:12: WBC 15.7 H, MCH 32.9 H, Plt Count 123 L, MPV 12.0 H, Neutrophils % (Manual) 85 H, Band Neuts % (Manual) 2 L, Lymphocytes % (Manual) 11 L 10/27/20 12:12: Serum Osmolality 300 H 10/27/20 15:37: Triglycerides Greater than 3800 H 10/27/20 16:14: Potassium 6.8 H*, Carbon Dioxide 19 L, Anion Gap 8 L, BUN 8 L, Calcium 7.1 L 10/27/20 16:56: Hemoglobin A1c 7.3 H 10/27/20 16:56: Phosphorus 2.0 L 10/27/20 19:44: Chloride 109 H, Carbon Dioxide 17 L, BUN 7 L, Creatinine 0.65 L, Calcium 6.7 L 10/27/20 23:54: Sodium 132 L, Carbon Dioxide 16 L, BUN 6 L, Creatinine 0.64 L, Calcium 6.4 L 10/28/20 03:22: Lipase 248 H 10/28/20 03:22: Sodium 129 L, Potassium 3.4 L, Carbon Dioxide Less than 8 L*, BUN 4 L, Creatinine 0.60 L, Calcium 7.3 L 10/28/20 03:22: Phosphorus 1.8 L 10/28/20 03:22: WBC 11.7 H, MCH 34.2 H, MCHC 36.7 H, MPV 11.4 H, Neutrophils % 81.6 H, Lymphocytes % 13.4 L, Neutrophils # 9.6 H 10/28/20 03:22: Triglycerides 2544 H 10/28/20 06:18: Sodium 134 L, Carbon Dioxide 13 L, Anion Gap 23 H, BUN 4 L, Creatinine 0.65 L, Calcium 7.2 L 10/28/20 13:13: Sodium 134 L, Carbon Dioxide 18 L, BUN 5 L, Creatinine 0.62 L, Calcium 7.2 L Radiology Reviewed by me: Yes (Chest x-ray no infiltrate) EKG Reviewed by me: Yes (Sinus rhythm on telemetry) Hospitalist ROS - Review of Systems Respiratory: denies: cough, dry, shortness of breath, hemoptysis, SOB with excertion, pleuritic pain, sputum, wheezing, other Cardiovascular: denies: chest pain, palpitations, orthopnea, paroxysmal noc. dyspnea, edema, light headedness, other All other systems reviewed; all pertinent +/- noted in HPI/Subj - Medication Medications: Active Medications Generic Name Dose Route Start Last Admin Trade Name Freq PRN Reason Stop Dose Admin Enoxaparin Sodium 40 mg 10/28/20 09:00 10/28/20 07:41 Enoxaparin Sodium 40 Mg/0.4 Ml Syringe SC 40 mg 0900 LUDY Administration Sodium Bicarbonate 50 meq/ 1,050 mls @ 200 mls/hr 10/27/20 17:15 10/28/20 11:08 Dextrose/Sodium Chloride IV 1,050 mls .[id number] LUDY Administration Insulin Human Regular 100 101 mls @ 0 mls/hr 10/27/20 17:30 10/28/20 09:26 units/ Sodium Chloride IVPB 101 mls INF LUDY Administration Protocol Titrate Multivitamins 1 tab 10/28/20 09:00 10/28/20 07:40 Multivit, Therapeutic 1 Tab PO 1 tab DAILY LUDY Administration Ondansetron HCl 4 mg 10/27/20 17:29 10/28/20 05:36 Ondansetron Odt 4 Mg Tab PO 4 mg Q6H PRN Administration Nausea/Vomiting Pantoprazole Sodium 40 mg 10/27/20 21:00 10/28/20 07:41 Pantoprazole 40 Mg Vial IVP 40 mg Q12HR LUDY Administration Tramadol HCl 50 mg 10/27/20 19:27 10/28/20 11:48 Tramadol Hcl 50 Mg Tab PO 50 mg Q4H PRN Administration Moderate Pain (4-6) - Exam General Appearance: NAD Eye: PERRL, anicteric sclera ENT: normocephalic atraumatic, no oropharyngeal lesions Neck: supple, no JVD, no thyromegaly Heart: RRR, no gallops, no rubs, normal peripheral pulses Respiratory: CTAB, no wheezes, no rales, no ronchi Gastrointestinal: soft, non-distended, normal bowel sounds, no guarding, no rigidity Gastrointestinal - other findings: Minimal epigastric tenderness Extremities: no cyanosis, no clubbing, no edema Skin: normal turgor, no lesions Neurological: no new deficit Musculoskeletal: normal tone Psychiatric: normal affect, A&O x 3 Hosp A/P - Plan DVT proph w/lovenox, DVT proph w/SCDs Acute pancreatitis due to hypertriglyceridemia Severe metabolic acidosis Systemic inflammatory response syndrome due to above Dehydration Hypomagnesemia/hypophosphatemia/hypokalemia Hyperkalemia due to metabolic acidosisresolved Diabetes mellitus type 2 Fatty liver Thrombocytopenia Tobacco dependence Obesity with a BMI 32.6 PLAN: IMCU monitoring. Cont D5 1/2 NS with Insulin drip. Cont glucose check Q1 hr. Replace magnesium and phosphorus. Counseled on tobacco cessation. GI input appreciated. Continue to monitor labs every 4 hourly. Continue PPI.
[2020-10-28 15:17] LABS: Glucose 149 mg/dL (70-105)
[2020-10-28 15:44] LABS: Glucose 147 mg/dL (70-105)
[2020-10-28 16:53] LABS: Anion Gap 16 mmol/L (10-20); BUN (Urea Nitrogen) 5 mg/dL (8.9-20.6); Calc. Creatinine Clearance 182 mL/min (70-130); Calcium 7.2 mg/dL (7.8-10.44); Carbon Dioxide 18 mmol/L (22-29); Chloride 104 mmol/L (98-107); Estimated GFR-MDRD Greater than 90; Glucose 133 mg/dL (70-105); Potassium 3.7 mmol/L (3.5-5.1); Sodium 134 mmol/L (136-145)
[2020-10-28 18:55] LABS: Glucose 118 mg/dL (70-105)
[2020-10-28 19:25] LABS: Glucose 135 mg/dL (70-105)
[2020-10-28 21:05] LABS: Glucose 133 mg/dL (70-105)
[2020-10-28 22:20] LABS: Glucose 133 mg/dL (70-105)
[2020-10-29 00:12] LABS: Glucose 120 mg/dL (70-105)
[2020-10-29 01:14] LABS: Glucose 131 mg/dL (70-105)
[2020-10-29 03:51] LABS: #Eosinphils 0.1 thou/uL (0.0-0.7); #Lymphocytes 1.6 thou/uL (1.20-3.40); #Monocytes 0.5 thou/uL (0.11-0.59); #Neutrophils 7.1 thou/uL (1.40-6.50); %Basophils 0.4 % (0.0-1.0); %Eosinophils 1.2 % (0.0-10.0); %Lymphocytes 16.9 % (21.0-51.0); %Monocytes 5.2 % (0.0-10.0); %Neutrophils 76.3 % (42.0-75.0); Hemoglobin 13.1 g/dL (14.0-18.0); Mean Corpuscular Hemoglobin 33.7 pg (27.0-31.0); Mean Corpuscular Volume 96.3 fL (78.0-98.0); Mean Platelet Volume 10.3 fL (7.4-10.4); Platelet Count 116 thou/uL (130-400); Red Blood Cell (RBC) Count 3.88 mill/uL (4.70-6.10); White Blood Cell (WBC) Count 9.3 thou/uL (4.8-10.8)
[2020-10-29 04:06] LABS: Glucose 125 mg/dL (70-105)
[2020-10-29] MEDS: Sodium Bicarbonate 50 MEQ in Dextrose 5 %-0.45 % NaCl 1,000 ML IV SCH ×3 (04:08→15:21)
[2020-10-29 04:13] LABS: Phosphorus 1.6 mg/dL (2.3-4.7)
[2020-10-29 04:15] LABS: Anion Gap 12 mmol/L (10-20); BUN (Urea Nitrogen) 5 mg/dL (8.9-20.6); Calc. Creatinine Clearance 182 mL/min (70-130); Calcium 7.3 mg/dL (7.8-10.44); Carbon Dioxide 21 mmol/L (22-29); Chloride 103 mmol/L (98-107); Estimated GFR-MDRD Greater than 90; Glucose 131 mg/dL (70-105); Lipase 117 U/L (8-78); Magnesium 2.2 mg/dL (1.6-2.6); Potassium 3.6 mmol/L (3.5-5.1); Sodium 132 mmol/L (136-145)
[2020-10-29 06:39] LABS: Glucose 123 mg/dL (70-105)
[2020-10-29 07:41] LABS: Glucose 120 mg/dL (70-105)
[2020-10-29] MEDS: Pantoprazole 40 MG VIAL IVP SCH (08:40)
[2020-10-29] MEDS: Enoxaparin Sodium 40 MG/0.4 ML SYRINGE SC SCH (08:40)
[2020-10-29] MEDS: PHOS-NAK 1 PKT PACK PO SCH ×2 (08:41→11:58)
[2020-10-29] MEDS: Calcium Carbonate 600 MG + Vit D TAB PO SCH ×2 (08:41→16:40)
[2020-10-29] MEDS: Multivit, Therapeutic 1 TAB PO SCH (08:41)
--- NOTE | 2020-10-29 11:53 | PRG ---
DATE OF SERVICE: 10/29/2020 SUBJECTIVE: Mr. Hernandez is doing pretty well this morning. He has only some mild abdominal discomfort. No significant pain. There is no nausea or vomiting. He has been passing gas. He has remained hemodynamically stable. OBJECTIVE: VITAL SIGNS: Temperature 98.2, pulse 75, blood pressure 110/72, 100% oxygen saturation on room air. GENERAL: No acute distress. HEART: Regular rate and rhythm. LUNGS: Clear to auscultation bilaterally. ABDOMEN: Bowel sounds present. Soft and nontender to palpation. EXTREMITIES: No peripheral edema. LABORATORY STUDIES: Sodium 132, potassium 3.6, BUN 5, creatinine 0.65. Lipase is down to 117, triglycerides down to 862, glucose 124. WBC 9.3, hemoglobin 13.1, platelets 116. ASSESSMENT AND PLAN: Hypertriglyceridemia-induced pancreatitis, recurrent. Clinically, the patient's pancreatitis appears to be resolving. We will go ahead and advance him to clear liquids for lunch today. If he is doing well this afternoon, the diet could be further advanced as tolerated to a low-fat diet. Triglycerides have come down markedly. Would finish out this bag of the insulin drip, then I think it could be stopped. We will need to go ahead and start on oral triglyceride lowering therapy such as Tricor. If the patient does well with dietary advancement, potentially he could be discharged from the hospital tomorrow. Job ID: [id number]
--- NOTE | 2020-10-29 12:19 | PDOC.HOSPP ---
- Subjective Encounter Date: 10/29/20 Encounter Time: 10:00 Subjective: Patient seen and examined for acute pancreatitis due to hypertriglyceridemia. Denies any nausea, abdominal pain or diarrhea. No fever, chills or jaundice reported. - Objective Vital Signs & Weight: Vital Signs (12 hours) Temp 10/29/20 11:41 98.8 F 10/29/20 07:13 98.2 F 10/29/20 04:21 98.8 F Weight Weight 196 lb Most Recent Monitor Data Heart Rate from ECG 98 NIBP 111/55 NIBP BP-Mean 73 Respiration from ECG 23 SpO2 100 I&O: 10/28/20 10/29/20 10/30/20 06:59 06:59 06:59 Intake Total 1857.2 5060.9 Output Total 1450 1450 Balance 407.2 3610.9 Result Diagrams: 10/29/20 03:16 10/29/20 06:57 Additional Labs: Accuchecks 10/29/20 10/29/20 10/29/20 12:00 11:11 09:56 POC Glucose 118 H 124 H 118 H 10/29/20 10/29/20 08:56 06:05 POC Glucose 116 H 129 H Abnormal Lab Results - Last 48 hrs 10/27/20 12:12: Potassium 6.1 H, Chloride 108 H, Carbon Dioxide 16 L, AST 53 H, Alkaline Phosphatase 120 H, Lipase 1874 H 10/27/20 12:12: WBC 15.7 H, MCH 32.9 H, Plt Count 123 L, MPV 12.0 H, Neutrophils % (Manual) 85 H, Band Neuts % (Manual) 2 L, Lymphocytes % (Manual) 11 L 10/27/20 12:12: Serum Osmolality 300 H 10/27/20 15:37: Triglycerides Greater than 3800 H 10/27/20 16:14: Potassium 6.8 H*, Carbon Dioxide 19 L, Anion Gap 8 L, BUN 8 L, Calcium 7.1 L 10/27/20 16:56: Hemoglobin A1c 7.3 H 10/27/20 16:56: Phosphorus 2.0 L 10/27/20 19:44: Chloride 109 H, Carbon Dioxide 17 L, BUN 7 L, Creatinine 0.65 L, Calcium 6.7 L 10/27/20 23:54: Sodium 132 L, Carbon Dioxide 16 L, BUN 6 L, Creatinine 0.64 L, Calcium 6.4 L 10/28/20 03:22: Lipase 248 H 10/28/20 03:22: Sodium 129 L, Potassium 3.4 L, Carbon Dioxide Less than 8 L*, BUN 4 L, Creatinine 0.60 L, Calcium 7.3 L 10/28/20 03:22: Phosphorus 1.8 L 10/28/20 03:22: WBC 11.7 H, MCH 34.2 H, MCHC 36.7 H, MPV 11.4 H, Neutrophils % 81.6 H, Lymphocytes % 13.4 L, Neutrophils # 9.6 H 10/28/20 03:22: Triglycerides 2544 H 10/28/20 06:18: Sodium 134 L, Carbon Dioxide 13 L, Anion Gap 23 H, BUN 4 L, Creatinine 0.65 L, Calcium 7.2 L 10/28/20 13:13: Sodium 134 L, Carbon Dioxide 18 L, BUN 5 L, Creatinine 0.62 L, Calcium 7.2 L 10/28/20 16:24: Sodium 134 L, Carbon Dioxide 18 L, BUN 5 L, Creatinine 0.65 L, Calcium 7.2 L 10/29/20 03:16: Sodium 132 L, Carbon Dioxide 21 L, BUN 5 L, Creatinine 0.65 L, Calcium 7.3 L, Lipase 117 H 10/29/20 03:16: Phosphorus 1.6 L 10/29/20 03:16: RBC 3.88 L, Hgb 13.1 L, Hct 37.3 L, MCH 33.7 H, Plt Count 116 L, Neutrophils % 76.3 H, Lymphocytes % 16.9 L, Neutrophils # 7.1 H 10/29/20 03:16: Triglycerides 862 H Radiology Reviewed by me: Yes (Chest x-ray no infiltrate) EKG Reviewed by me: Yes (Sinus rhythm on telemetry) Hospitalist ROS - Review of Systems Cardiovascular: denies: chest pain, palpitations, orthopnea, paroxysmal noc. dyspnea, edema, light headedness, other Gastrointestinal: denies: nausea, vomiting, abdominal pain, diarrhea, constipation, melena, hematochezia, other All other systems reviewed; all pertinent +/- noted in HPI/Subj - Medication Medications: Active Medications Generic Name Dose Route Start Last Admin Trade Name Freq PRN Reason Stop Dose Admin Calcium/Vitamin D 1 tab 10/29/20 08:00 10/29/20 08:41 Calcium Carbonate 600 Mg + Vit D Tab PO 1 tab BID-WM LUDY Administration Enoxaparin Sodium 40 mg 10/28/20 09:00 10/29/20 08:40 Enoxaparin Sodium 40 Mg/0.4 Ml Syringe SC 40 mg 0900 LUDY Administration Sodium Bicarbonate 50 meq/ 1,050 mls @ 200 mls/hr 10/27/20 17:15 10/29/20 09:49 Dextrose/Sodium Chloride IV 1,050 mls .Q5H15M LUDY Administration Insulin Human Regular 100 101 mls @ 0 mls/hr 10/27/20 17:30 10/28/20 09:26 units/ Sodium Chloride IVPB 101 mls INF LUDY Administration Protocol Titrate Multivitamins 1 tab 10/28/20 09:00 10/29/20 08:41 Multivit, Therapeutic 1 Tab PO 1 tab DAILY LUDY Administration Ondansetron HCl 4 mg 10/27/20 17:29 10/28/20 05:36 Ondansetron Odt 4 Mg Tab PO 4 mg Q6H PRN Administration Nausea/Vomiting Pantoprazole Sodium 40 mg 10/27/20 21:00 10/29/20 08:40 Pantoprazole 40 Mg Vial IVP 40 mg Q12HR LUDY Administration Sodium Chloride 10 ml 10/27/20 17:29 10/29/20 08:40 Flush - Normal Saline 10 Ml Syringe IVF 10 ml PRN PRN Administration Saline Flush Tramadol HCl 50 mg 10/27/20 19:27 10/28/20 18:17 Tramadol Hcl 50 Mg Tab PO 50 mg Q4H PRN Administration Moderate Pain (4-6) - Exam General Appearance: NAD Neck: supple, no JVD Heart: RRR, no gallops, no rubs, normal peripheral pulses Respiratory: no wheezes, no rales, no ronchi, normal chest expansion Gastrointestinal: soft, non-tender, non-distended, normal bowel sounds Extremities: no cyanosis, no clubbing Neurological: no new deficit Psychiatric: normal affect, A&O x 3 Hosp A/P - Plan DVT proph w/lovenox, DVT proph w/SCDs Acute pancreatitis due to hypertriglyceridemia Severe metabolic acidosis Systemic inflammatory response syndrome due to above Dehydration Hypomagnesemia/hypophosphatemia/hypokalemia Hyperkalemia due to metabolic acidosisresolved Diabetes mellitus type 2 Fatty liver Thrombocytopenia Tobacco dependence Obesity with a BMI 32.6 PLAN: Replace phosphorus. Continue IV fluids with dextrose and sodium bicarbonate. Triglyceride improving. Recheck triglyceride and BMP later today. Will start clear liquid diet. Will adjust IV fluids based on the labs. Change PPIs to p.o. May transfer to medical later today if off insulin drip. Start fenofibrate from tomorrow. Recheck labs including triglyceride in a.m.
[2020-10-29 14:59] LABS: Anion Gap 13 mmol/L (10-20); BUN (Urea Nitrogen) 5 mg/dL (8.9-20.6); Calc. Creatinine Clearance 177 mL/min (70-130); Calcium 7.9 mg/dL (7.8-10.44); Carbon Dioxide 21 mmol/L (22-29); Chloride 103 mmol/L (98-107); Estimated GFR-MDRD Greater than 90; Glucose 137 mg/dL (70-105); Potassium 3.8 mmol/L (3.5-5.1); Sodium 133 mmol/L (136-145); Triglycerides 755 mg/dL (Less than 150)
[2020-10-29] MEDS ORDERED: Dextrose 50% Abboject 50 ML SYRINGE SLOW IVP PRN (15:45)
[2020-10-29] MEDS ORDERED: Insulin Regular 300 UNITS/3 ML VIAL SC PRN ×2 (15:45)
[2020-10-29] MEDS ORDERED: Dextrose 5% in Water 1,000 ML IV PRN (15:45)
[2020-10-29] MEDS: 1/2 NS w/KCL 20 mEq 1,000 ML IV SCH ×2 (16:30→20:29)
[2020-10-30 08:01] LABS: #Eosinphils 0.1 thou/uL (0.0-0.7); #Lymphocytes 1.4 thou/uL (1.20-3.40); #Monocytes 0.6 thou/uL (0.11-0.59); #Neutrophils 8.1 thou/uL (1.40-6.50); %Basophils 0.3 % (0.0-1.0); %Eosinophils 0.9 % (0.0-10.0); %Lymphocytes 13.9 % (21.0-51.0); %Monocytes 5.6 % (0.0-10.0); %Neutrophils 79.2 % (42.0-75.0); Hemoglobin 12.8 g/dL (14.0-18.0); Mean Corpuscular HGB CONC 33.9 g/dL (32.0-36.0); Mean Corpuscular Hemoglobin 32.7 pg (27.0-31.0); Mean Corpuscular Volume 96.4 fL (78.0-98.0); Platelet Count 121 thou/uL (130-400); RBC Distribution Width 11.7 % (11.5-14.5); White Blood Cell (WBC) Count 10.2 thou/uL (4.8-10.8)
[2020-10-30 08:13] VITALS: BP 123/78; TEMP 98.4
[2020-10-30 08:24] LABS: ALT (SGPT) 26 U/L (8-55); AST (SGOT) 19 U/L (5-34); Albumin 3.2 g/dL (3.5-5.0); Alkaline Phosphatase 123 U/L (40-110); Anion Gap 14 mmol/L (10-20); BUN (Urea Nitrogen) 7 mg/dL (8.9-20.6); Bilirubin, Total 1.5 mg/dL (0.2-1.2); Calc. Creatinine Clearance 180 mL/min (70-130); Calcium 8.7 mg/dL (7.8-10.44); Carbon Dioxide 20 mmol/L (22-29); Chloride 104 mmol/L (98-107); Estimated GFR-MDRD Greater than 90; Globulin 3.2 g/dL (2.4-3.5); Glucose 150 mg/dL (70-105); Phosphorus 2.3 mg/dL (2.3-4.7); Protein, Total 6.4 g/dL (6.0-8.3); Sodium 134 mmol/L (136-145); Triglycerides 664 mg/dL (Less than 150)
[2020-10-30] MEDS ORDERED: Magnesium 2 GM/50 ML 2 GM in Premix Bag 1 BAG IVPB SCH (08:45)
[2020-10-30] MEDS ORDERED: Fenofibrate Nanocrystallized 145 MG TAB PO SCH (09:00)
[2020-10-30] MEDS: Multivit, Therapeutic 1 TAB PO SCH (09:12)
[2020-10-30] MEDS: Calcium Carbonate 600 MG + Vit D TAB PO SCH (09:12)
[2020-10-30] MEDS: 1/2 NS w/KCL 20 mEq 1,000 ML IV SCH (09:12)
--- NOTE | 2020-10-30 10:07 | PDOC.HOSPP ---
- Subjective Encounter Date: 10/30/20 Encounter Time: 09:00 Subjective: Patient seen and examined for acute pancreatitis. Abdominal pain resolved. Denies any nausea, vomiting or diarrhea. Had bowel movement earlier today. - Objective Vital Signs & Weight: Vital Signs (12 hours) Temp Pulse Resp BP Pulse Ox 10/30/20 08:11 98.4 F 83 18 123/78 98 10/29/20 23:59 99.2 F 95 16 117/68 95 Weight Weight 196 lb Most Recent Monitor Data Heart Rate from ECG 97 NIBP 133/85 NIBP BP-Mean 101 Respiration from ECG 32 SpO2 97 I&O: 10/29/20 10/30/20 10/31/20 06:59 06:59 06:59 Intake Total 5060.9 3787 Output Total 1450 1350 Balance 3610.9 2437 Result Diagrams: 10/30/20 07:38 10/30/20 07:38 Additional Labs: Accuchecks 10/30/20 10/29/20 10/29/20 05:39 20:13 16:43 POC Glucose 148 H 186 H 131 H 10/29/20 10/29/20 10/29/20 15:11 14:20 13:07 POC Glucose 114 H 143 H 143 H 10/29/20 10/29/20 12:00 11:11 POC Glucose 118 H 124 H Abnormal Lab Results - Last 48 hrs 10/28/20 13:13: Sodium 134 L, Carbon Dioxide 18 L, BUN 5 L, Creatinine 0.62 L, Calcium 7.2 L 10/28/20 16:24: Sodium 134 L, Carbon Dioxide 18 L, BUN 5 L, Creatinine 0.65 L, Calcium 7.2 L 10/29/20 03:16: Sodium 132 L, Carbon Dioxide 21 L, BUN 5 L, Creatinine 0.65 L, Calcium 7.3 L, Lipase 117 H 10/29/20 03:16: Phosphorus 1.6 L 10/29/20 03:16: RBC 3.88 L, Hgb 13.1 L, Hct 37.3 L, MCH 33.7 H, Plt Count 116 L, Neutrophils % 76.3 H, Lymphocytes % 16.9 L, Neutrophils # 7.1 H 10/29/20 03:16: Triglycerides 862 H 10/29/20 14:27: Sodium 133 L, Carbon Dioxide 21 L, BUN 5 L, Creatinine 0.67 L, Triglycerides 755 H 10/30/20 07:38: Sodium 134 L, Carbon Dioxide 20 L, BUN 7 L, Creatinine 0.66 L, Total Bilirubin 1.5 H, Alkaline Phosphatase 123 H, Albumin 3.2 L, Albumin/Globulin Ratio 1.0 L, Triglycerides 664 H 10/30/20 07:38: RBC 3.90 L, Hgb 12.8 L, Hct 37.6 L, MCH 32.7 H, Plt Count 121 L, MPV 11.0 H, Neutrophils % 79.2 H, Lymphocytes % 13.9 L, Neutrophils # 8.1 H, Monocytes # 0.6 H Radiology Reviewed by me: Yes (Chest x-rayno infiltrate) Hospitalist ROS - Review of Systems Respiratory: denies: cough, dry, shortness of breath, hemoptysis, SOB with excertion, pleuritic pain, sputum, wheezing, other Cardiovascular: denies: chest pain, palpitations, orthopnea, paroxysmal noc. dyspnea, edema, light headedness, other - Medication Medications: Active Medications Generic Name Dose Route Start Last Admin Trade Name Freq PRN Reason Stop Dose Admin Acetaminophen 650 mg 10/27/20 17:29 10/29/20 15:21 Acetaminophen 325 Mg Tab PO 650 mg Q4H PRN Administration Headache/Fever/Mild Pain (1-3) Calcium/Vitamin D 1 tab 10/29/20 08:00 10/30/20 09:12 Calcium Carbonate 600 Mg + Vit D Tab PO 1 tab BID-WM LUDY Administration Fenofibrate 145 mg 10/30/20 09:00 10/30/20 09:12 Fenofibrate Nanocrystallized 145 Mg Tab PO 145 mg DAILY LUDY Administration Potassium Chloride/Sodium Chloride 1,000 mls @ 125 mls/hr 10/29/20 15:45 10/30/20 09:12 1/2 Ns W/Kcl 20 Meq IV 1,000 mls .Q8H LUDY Administration Magnesium Sulfate 2 gm/ Device 50 mls @ 50 mls/hr 10/30/20 08:45 10/30/20 09:11 IVPB 10/30/20 12:00 50 mls NOW LUDY Administration Morphine Sulfate 2 mg 10/27/20 16:57 10/29/20 22:27 Morphine 2 Mg/Ml Vial SLOW IVP 10/30/20 16:58 2 mg Q4H PRN Administration Pain Multivitamins 1 tab 10/28/20 09:00 10/30/20 09:12 Multivit, Therapeutic 1 Tab PO 1 tab DAILY LUDY Administration Ondansetron HCl 4 mg 10/27/20 17:29 10/28/20 05:36 Ondansetron Odt 4 Mg Tab PO 4 mg Q6H PRN Administration Nausea/Vomiting Pantoprazole Sodium 40 mg 10/30/20 09:00 10/30/20 09:12 Pantoprazole 40 Mg Tab PO 40 mg DAILY LUDY Administration Sodium Chloride 10 ml 10/27/20 17:29 10/29/20 08:40 Flush - Normal Saline 10 Ml Syringe IVF 10 ml PRN PRN Administration Saline Flush Tramadol HCl 50 mg 10/27/20 19:27 10/28/20 18:17 Tramadol Hcl 50 Mg Tab PO 50 mg Q4H PRN Administration Moderate Pain (4-6) - Exam General Appearance: NAD Heart: RRR, no gallops Respiratory: no wheezes, no ronchi Gastrointestinal: non-tender, non-distended, normal bowel sounds, no guarding, no rigidity Extremities: no cyanosis, no clubbing Neurological: no new deficit Musculoskeletal: normal tone Hosp A/P - Plan DVT proph w/SCDs Acute pancreatitis due to hypertriglyceridemia Severe metabolic acidosis Systemic inflammatory response syndrome due to above Dehydration Hypomagnesemia/hypophosphatemia/hypokalemia Hyperkalemia due to metabolic acidosisresolved Diabetes mellitus type 2 Fatty liver Thrombocytopenia Tobacco dependence Obesity with a BMI 32.6 PLAN: Reduce IV fluid to 75 mL/h. May DC IV fluid after this bag replace magnesium. Start Metformin. Continue TriCor. Continue low-fat diet. DC home if okay with gastroenterology.
[2020-10-30] MEDS ORDERED: 1/2 NS w/KCL 20 mEq 1,000 ML IV SCH (10:09)
--- NOTE | 2020-10-30 11:03 | PDOC.DS.DS ---
Provider - Provider Date of Admission: 10/27/20 16:56 Date of Discharge: 10/30/20 Admitting Provider: Jimenez Bal MD Consultations: Gastroentrology Primary Care Physician: NO PCP PROVIDER Course - Hospital Course Hospital Course: Patient is a 45-year-old male with hypertriglyceridemia induced pancreatitis in November 19 presented to the emergency room with epigastric pain of 1 day duration. His work-up was consistent with acute pancreatitis due to hypertriglyceridemia. His triglyceride on admission was greater than 3800 with lipase of 1874. He was admitted to the IMCU and was started on insulin drip with dextrose. He remained in the IMCU for more than 48 hours. Later on he was transferred to medical floor. His triglyceride on the day of discharge is 664. His lipase yesterday was 117. He is tolerating low-fat diet. Patient is not taking any medications at home. He was extensively counseled to be compliant with TriCor. He also has a long history of diabetes and his A1c was 7.3. Metformin has been restarted. Final diagnosis: Acute pancreatitis due to hypertriglyceridemia Severe metabolic acidosis Systemic inflammatory response syndrome due to above Dehydration Hypomagnesemia/hypophosphatemia/hypokalemia Hyperkalemia due to metabolic acidosisresolved Diabetes mellitus type 2 Fatty liver Thrombocytopenia Tobacco dependence Obesity with a BMI 32.6 Resuscitation Status: 10/27/20 17:29 Resuscitation Status Routine Resuscitation Status: FULL: Full Resuscitation - Labs Lab Results: 10/30/20 07:38 10/30/20 07:38 Abnormal Lab Results - Last 48 hrs 10/28/20 13:13: Sodium 134 L, Carbon Dioxide 18 L, BUN 5 L, Creatinine 0.62 L, Calcium 7.2 L 10/28/20 16:24: Sodium 134 L, Carbon Dioxide 18 L, BUN 5 L, Creatinine 0.65 L, Calcium 7.2 L 10/29/20 03:16: Sodium 132 L, Carbon Dioxide 21 L, BUN 5 L, Creatinine 0.65 L, Calcium 7.3 L, Lipase 117 H 10/29/20 03:16: Phosphorus 1.6 L 10/29/20 03:16: RBC 3.88 L, Hgb 13.1 L, Hct 37.3 L, MCH 33.7 H, Plt Count 116 L, Neutrophils % 76.3 H, Lymphocytes % 16.9 L, Neutrophils # 7.1 H 10/29/20 03:16: Triglycerides 862 H 10/29/20 14:27: Sodium 133 L, Carbon Dioxide 21 L, BUN 5 L, Creatinine 0.67 L, Triglycerides 755 H 10/30/20 07:38: Sodium 134 L, Carbon Dioxide 20 L, BUN 7 L, Creatinine 0.66 L, Total Bilirubin 1.5 H, Alkaline Phosphatase 123 H, Albumin 3.2 L, Albumin/Globulin Ratio 1.0 L, Triglycerides 664 H 10/30/20 07:38: RBC 3.90 L, Hgb 12.8 L, Hct 37.6 L, MCH 32.7 H, Plt Count 121 L, MPV 11.0 H, Neutrophils % 79.2 H, Lymphocytes % 13.9 L, Neutrophils # 8.1 H, Monocytes # 0.6 H - Physical Exam Vitals: Vital Signs (12 hours) Temp Pulse Resp BP Pulse Ox 10/30/20 08:11 98.4 F 83 18 123/78 98 10/29/20 23:59 99.2 F 95 16 117/68 95 Weight Weight 196 lb Most Recent Monitor Data Heart Rate from ECG 97 NIBP 133/85 NIBP BP-Mean 101 Respiration from ECG 32 SpO2 97 Physical Exam: The patient was seen and examined on the day of discharge. Plan - Discharge Medications Prescriptions: metFORMIN [Glucophage] 500 mg PO BID-WM #30 tab Fenofibrate Nanocrystallized [Tricor] 145 mg PO DAILY #30 tab Home Medications: Medication Instructions Recorded Confirmed Type Fenofibrate Nanocrystallized 145 mg PO DAILY #30 tab 10/30/20 Rx [Tricor] metFORMIN [Glucophage] 500 mg PO BID-WM #30 tab 10/30/20 Rx Allergies: No Known Drug Allergies Allergy (Verified 11/10/19 13:57) Per patient - Discharge Instructions Discharge Instructions:: LFTs after 1 weekPCP to arrange and follow Triglyceride levels after 4 weeks - Follow up Plan Referrals: Christ Melendez MD [Active] - 2-3 Weeks [facility] [MD Not on Staff] - 3 Days Disposition: HOME Quality - Care Measures CORE MEASURES:: N/A
--- NOTE | 2020-10-30 11:18 | PRG ---
DATE OF SERVICE: 10/30/2020 SUBJECTIVE: The patient is feeling very well. He is tolerating a low-fat diet with no further abdominal pain or any nausea. He has remained hemodynamically stable. Triglycerides have come down to 664. OBJECTIVE: VITAL SIGNS: Temperature 98.4, pulse 83, blood pressure 123/78, and 98% oxygen saturation on room air. GENERAL: In no acute distress. Lying in bed comfortably. HEART: Regular rate and rhythm. LUNGS: Clear to auscultation bilaterally. ABDOMEN: Bowel sounds present. Soft, nontender to palpation. EXTREMITIES: No peripheral edema. LABORATORY STUDIES: WBC 10.2, hemoglobin 12.8, and platelets 121. INR 0.9. Sodium 134, potassium 4.0, BUN 7, creatinine 0.66, total bilirubin 1.5, alkaline phosphatase 123, AST 19, ALT 26, albumin 3.2. Triglycerides came down to 664. Lipase from yesterday was down to 117. ASSESSMENT AND PLAN: Hypertriglyceridemia-induced pancreatitis, recurrent. The patient's pancreatitis has now resolved. He is tolerating his diet. He is okay for discharge from a GI perspective. He responded well to insulin infusion. I advised he really needs to stay on his fenofibrate going forward. He needs to follow up with his primary care physician regarding ongoing management of triglycerides. Okay for discharge from a GI standpoint. GI will sign off. Please call back anytime with questions or concerns. Job ID: [id number]
[2020-10-30] MEDS ORDERED: metFORMIN 500 MG TAB PO SCH (17:00)
== END 2020-10-30 11:50 | disposition home or self-care (01) | DRG 439 ==
LOC: ERS 11:55 → IMCU/EMU 16:56 → ONC 10-29 17:01
PROVIDERS: ADMIT Internal Medicine; ATTEND Internal Medicine
DX: K85.80 Other acute pancreatitis without necrosis or infection (principal); E87.2 Acidosis; R65.10 Systemic inflammatory response syndrome (SIRS) of non-infectious origin without acute organ dysfunction; Z20.828 Contact with and (suspected) exposure to other viral communicable diseases; E78.1 Pure hyperglyceridemia; E86.0 Dehydration; E83.42 Hypomagnesemia; E83.39 Other disorders of phosphorus metabolism; E87.5 Hyperkalemia; K76.0 Fatty (change of) liver, not elsewhere classified; D69.6 Thrombocytopenia, unspecified; F17.210 Nicotine dependence, cigarettes, uncomplicated; E66.9 Obesity, unspecified; E11.65 Type 2 diabetes mellitus with hyperglycemia; E87.6 Hypokalemia; Z68.32 Body mass index [BMI] 32.0-32.9, adult; Z91.14 Patient's other noncompliance with medication regimen; Z79.899 Other long term (current) drug therapy
CPT/HCPCS: 36415; 36416; 71045; 76705; 80048; 80053; 82010; 83036; 83605; 83690; 83735; 83930; 84100; 84478; 84484; 85025; 85610; 85730; 87635; 90471; 90662; 93005; 96374; 96375; C9113; G0008; J1650; J1815; J2270; J2405; J3010; J3475; J3480; J3490; J7042; J7050; Q0162; U0003

== ENCOUNTER 2023-08-18 18:01 | Inpatient (IN) | payer SELFPAY ==
[~2023-08-18 18:01] MED LIST: Iopamidol-370 76% 500 ML MDV (1 ML CHARGE) ONE
[2023-08-18] MEDS ORDERED: Morphine 4 MG/ML VIAL ONE ×2 (18:33→20:20)
[2023-08-18] MEDS ORDERED: Ondansetron PF 4 MG/2 ML Vial ONE ×2 (18:33→18:35)
[2023-08-18 19:18] LABS: #Monocytes 0.7 thou/uL (0.11-0.59); #Neutrophils 14.5 thou/uL (1.40-6.50); %Basophils 0.2 % (0.0-1.0); %Eosinophils 0.1 % (0.0-10.0); %Lymphocytes 5.8 % (21.0-51.0); %Monocytes 4.4 % (0.0-10.0); Hematocrit 38.1 % (42.0-52.0); Hemoglobin 14.2 g/dL (14.0-18.0); Mean Corpuscular HGB CONC 37.3 g/dL (32.0-36.0); Mean Corpuscular Hemoglobin 33.8 pg (27.0-31.0); Mean Corpuscular Volume 90.7 fl (78.0-98.0); RBC Distribution Width 12.6 % (11.5-14.5); White Blood Cell (WBC) Count 16.2 10x3/uL (4.8-10.8)
[2023-08-18 19:19] LABS: Mean Platelet Volume 13.1 fL (7.4-10.4); Platelet Count 159 10x3/uL (130-400)
[2023-08-18 19:29] LABS: Troponin I Less than 0.010 ng/mL (< 0.028)
[2023-08-18 19:33] LABS: ALT (SGPT) 46 U/L (8-55); CK (CPK) 44 U/L (30-200)
[2023-08-18 19:42] LABS: Albumin 4.4 g/dL (3.5-5.0); Anion Gap 18 mmol/L (10-20); Calc. Creatinine Clearance 0 mL/min (70-130); Calcium 9.9 mg/dL (7.8-10.44); Carbon Dioxide 18 mmol/L (22-29); Chloride 92 mmol/L (98-107); Estimated GFR 107; Glucose 268 mg/dL (70-105); Lipase 277 U/L (8-78); Potassium 3.9 mmol/L (3.5-5.1); Sodium 124 mmol/L (136-145)
[2023-08-18 20:05] LABS: Alcohol Less than 10.0 mg/dL (Less than 10)
[2023-08-18 20:08] LABS: Acetaminophen Less than 10 mcg/mL (10.0-30.0); Globulin 8.2 g/dL (2.4-3.5); Protein, Total 12.6 g/dL (6.0-8.3)
[2023-08-18 20:10] LABS: Bilirubin Negative (Negative); Blood, Urine Negative (Negative); Clarity Clear (Clear); Glucose, Urine (Dipstick) Greater than 1000 mg/dL (Negative); Ketone, Urine 150 mg/dL (Negative); Leukocyte Negative Leu/uL (Negative); Nitrite Negative (Negative); Protein, Urine (Dipstick) 20 mg/dL (Neg-Trace); Urobilinogen Normal mg/dL (Less than 2)
[2023-08-18 20:11] LABS: Bacteria/HPF None Seen HPF (None Seen); CAUTI Indications for Culture Pelvic or flank pain; RBC/HPF 0-3 HPF (0-3); Squamous Epithelial None Seen HPF (0-3); WBC/HPF 0-3 HPF (0-3)
[2023-08-18 20:13] LABS: Specific Gravity, Urine Greater than 1.060 (1.002-1.036)
[2023-08-18 20:14] LABS: Urine Culture Reflex No No
[2023-08-18 20:14] LABS: AST (SGOT) 18 U/L (5-34); Alkaline Phosphatase 175 U/L (40-110); BUN (Urea Nitrogen) 7 mg/dL (8.9-20.6)
[2023-08-18 20:15] LABS: Amphetamine Not Detected (NotDetected); Barbiturates Screen Not Detected (NotDetected); Benzodiazepine Screen Not Detected (NotDetected); Cocaine Metabolite Screen Not Detected (NotDetected); Methadone Not Detected (NotDetected); Methamphetamine Not Detected (NotDetected); Opiate Screen Detected (NotDetected); Oxycodone Screen Not Detected (NotDetected); Phencyclidine (PCP) Not Detected (NotDetected); THC/Cannabinoid Screen Not Detected (NotDetected); Tricyclic Screen Not Detected (NotDetected)
[2023-08-18 20:18] LABS: Salicylate Less than 8.0 mg/dL (15.0-30.0)
[2023-08-18] MEDS ORDERED: Ondansetron ODT 4 MG TAB PO PRN (21:02)
[2023-08-18] MEDS ORDERED: Ondansetron PF 4 MG/2 ML Vial IVP PRN (21:02)
[2023-08-18] MEDS ORDERED: Calcium Carbonate 500 MG ChewTAB PO PRN (21:02)
[2023-08-18] MEDS ORDERED: Acetaminophen 325 MG TAB PO PRN (21:02)
[2023-08-18] MEDS ORDERED: Nicotine 14 MG PATCH TD PRN (21:03)
[2023-08-18] MEDS ORDERED: Dextrose 50% Abboject 50 ML SYRINGE SLOW IVP PRN (21:06)
[2023-08-18] MEDS ORDERED: Glucagon 1 MG/ML KIT IM PRN (21:06)
[2023-08-18] MEDS ORDERED: Dextrose 5% in Water 1,000 ML IV PRN (21:06)
[2023-08-18 23:12] LABS: Hemoglobin A1c 8.3 % (4.0-6.0)
[2023-08-18 23:13] LABS: Cholesterol Greater than 700 mg/dl (< 200 Desired); HDL Cholesterol 17 mg/dL (>60 Neg Risk); Triglycerides Greater than 3800 mg/dL (Less than 150)
[2023-08-18 23:50] LABS: Chloride 105 mmol/L (98-107); Potassium 4.4 mmol/L (3.5-5.1)
[2023-08-18 23:51] LABS: Glucose 240 mg/dL (70-105); Sodium 134 mmol/L (136-145)
[2023-08-18] MEDS: Lactated Ringer's 1,000 ML IV SCH (23:53)
[2023-08-18 23:55] LABS: Calc. Creatinine Clearance 0 mL/min (70-130); Estimated GFR 115
[2023-08-18 23:56] LABS: BUN (Urea Nitrogen) 6 mg/dL (8.9-20.6); Carbon Dioxide 36 mmol/L (22-29)
[2023-08-18 23:57] LABS: Calcium 8.7 mg/dL (7.8-10.44)
[2023-08-19 00:52] VITALS: BMI 28.8
[2023-08-19 01:17] LABS: Anion Gap -3 mmol/L (10-20)
[2023-08-19] MEDS: Morphine 2 MG/ML VIAL SLOW IVP PRN ×4 (04:26→23:17)
[2023-08-19 07:01] LABS: #Monocytes 0.9 thou/uL (0.11-0.59); #Neutrophils 13.4 thou/uL (1.40-6.50); %Basophils 0.3 % (0.0-1.0); %Eosinophils 0.3 % (0.0-10.0); %Lymphocytes 8.4 % (21.0-51.0); %Monocytes 5.7 % (0.0-10.0); %Neutrophils 84.5 % (42.0-75.0); Mean Platelet Volume 13.5 fL (7.4-10.4); Platelet Count 122 10x3/uL (130-400); Red Blood Cell (RBC) Count 4.46 mill/uL (4.70-6.10); White Blood Cell (WBC) Count 15.9 10x3/uL (4.8-10.8)
[2023-08-19 08:33] LABS: BUN (Urea Nitrogen) Less than 4 mg/dL (8.9-20.6); Calc. Creatinine Clearance 161 mL/min (70-130); Calcium 9.1 mg/dL (7.8-10.44); Chloride 101 mmol/L (98-107); Estimated GFR 115; Glucose 212 mg/dL (70-105); Potassium 3.8 mmol/L (3.5-5.1); Sodium 131 mmol/L (136-145)
[2023-08-19 08:38] LABS: Hemoglobin 14.4 g/dL (14.0-18.0); Mean Corpuscular Volume 94.2 fl (78.0-98.0)
[2023-08-19 08:40] LABS: Mean Corpuscular HGB CONC 34.2 g/dL (32.0-36.0); Mean Corpuscular Hemoglobin 32.3 pg (27.0-31.0); RBC Distribution Width 13.1 % (11.5-14.5)
[2023-08-19] MEDS: Fenofibrate Nanocrystallized 145 MG TAB PO SCH (08:56)
[2023-08-19] MEDS: Famotidine 20 MG TAB PO SCH ×2 (08:56→19:39)
[2023-08-19] MEDS: metFORMIN 500 MG TAB PO SCH ×2 (08:56→16:13)
[2023-08-19] MEDS: Famotidine/PF 20 mg/2ml Vial SLOW IVP SCH ×2 (08:56→19:39)
[2023-08-19] MEDS: Lactated Ringer's 1,000 ML IV SCH (08:56)
[2023-08-19] MEDS: Lisinopril 5 MG TAB PO SCH (08:57)
[2023-08-19 09:09] LABS: Anion Gap 21 mmol/L (10-20); Carbon Dioxide 13 mmol/L (22-29)
[2023-08-19] MEDS ORDERED: Electrolyte Replacement Protocol 1 EACH IVPB PRN (09:19)
[2023-08-19] MEDS ORDERED: Dextrose 5 %-0.45 % NaCl 1,000 ML IV PRN (09:19)
[2023-08-19] MEDS ORDERED: NS 0.9% w/ 20 MEQ KCL 1,000 ML IV PRN (09:19)
[2023-08-19] MEDS ORDERED: Sodium Chloride 0.9% 1,000 ML IV PRN ×4 (09:19)
[2023-08-19] MEDS ORDERED: Electrolyte Replacement Protocol FS PRN (09:30)
[2023-08-19 11:06] LABS: BUN (Urea Nitrogen) Less than 4 mg/dL (8.9-20.6); Calc. Creatinine Clearance 159 mL/min (70-130); Chloride 101 mmol/L (98-107); Estimated GFR 114; Glucose 203 mg/dL (70-105); Potassium 3.9 mmol/L (3.5-5.1); Sodium 130 mmol/L (136-145)
[2023-08-19 11:20] LABS: Anion Gap 26 mmol/L (10-20)
[2023-08-19 11:23] LABS: Carbon Dioxide 8 mmol/L (22-29)
[2023-08-19] MEDS: NS 0.9% w/ 20 MEQ KCL 1,000 ML IV PRN ×2 (11:35→13:48)
[2023-08-19] MEDS: HUMULIN R 100 UNITS in Sodium Chloride 0.9% 100 ML IVPB SCH (11:35)
[2023-08-19] MEDS: Ketorolac Tromethamine 30 MG/ML VIAL IVP PRN ×2 (13:49→19:39)
[2023-08-19] MEDS: D5 1/2 NS w/20 mEq KCL 1,000 ML IV PRN ×3 (16:13→23:17)
[2023-08-19 17:19] LABS: Anion Gap 15 mmol/L (10-20); BUN (Urea Nitrogen) 4 mg/dL (8.9-20.6); Calc. Creatinine Clearance 188 mL/min (70-130); Calcium 8.5 mg/dL (7.8-10.44); Carbon Dioxide 15 mmol/L (22-29); Chloride 104 mmol/L (98-107); Estimated GFR 120; Glucose 173 mg/dL (70-105); Sodium 130 mmol/L (136-145)
[2023-08-19 20:53] LABS: Chloride 104 mmol/L (98-107); Potassium 4.6 mmol/L (3.5-5.1)
[2023-08-19 20:54] LABS: Calcium 8.2 mg/dL (7.8-10.44); Sodium 129 mmol/L (136-145)
[2023-08-19 20:55] LABS: Glucose 211 mg/dL (70-105)
[2023-08-19 20:56] LABS: Anion Gap 15 mmol/L (10-20); Carbon Dioxide 15 mmol/L (22-29)
[2023-08-19 20:58] LABS: Calc. Creatinine Clearance 171 mL/min (70-130); Estimated GFR 117
[2023-08-19 20:59] LABS: BUN (Urea Nitrogen) 4 mg/dL (8.9-20.6)
[2023-08-20] MEDS: D5 1/2 NS w/20 mEq KCL 1,000 ML IV PRN ×5 (03:23→20:19)
[2023-08-20] MEDS: Ketorolac Tromethamine 30 MG/ML VIAL IVP PRN ×2 (03:25→10:17)
[2023-08-20 04:51] LABS: Anion Gap 11 mmol/L (10-20); BUN (Urea Nitrogen) 4 mg/dL (8.9-20.6); Calc. Creatinine Clearance 188 mL/min (70-130); Calcium 8.5 mg/dL (7.8-10.44); Carbon Dioxide 21 mmol/L (22-29); Chloride 103 mmol/L (98-107); Estimated GFR 120; Glucose 156 mg/dL (70-105); Lipase 75 U/L (8-78); Magnesium 1.6 mg/dL (1.6-2.6); Potassium 3.6 mmol/L (3.5-5.1); Sodium 131 mmol/L (136-145)
[2023-08-20 04:52] LABS: Triglycerides 868 mg/dL (Less than 150)
[2023-08-20 05:01] LABS: Phosphorus 1.1 mg/dL (2.3-4.7)
[2023-08-20] MEDS ORDERED: Magnesium 2 GM/50 ML(in water) 2 GM in Premix Bag 1 BAG IVPB SCH ×2 (05:15→06:15)
[2023-08-20] MEDS ORDERED: PHOS-NAK 1 PKT PACK PO SCH (06:15)
[2023-08-20] MEDS ORDERED: Potassium Phosphate 15 MMOL in Sodium Chloride 0.9% 250 ML 250 ML IVPB SCH (07:00)
[2023-08-20] MEDS ORDERED: Potassium Phosphate 22 MMOL in Sodium Chloride 0.9% 250 ML 250 ML IVPB SCH (07:00)
[2023-08-20] MEDS: Famotidine 20 MG TAB PO SCH ×2 (07:52→20:19)
[2023-08-20] MEDS: Fenofibrate Nanocrystallized 145 MG TAB PO SCH (07:52)
[2023-08-20] MEDS: HUMULIN R 100 UNITS in Sodium Chloride 0.9% 100 ML IVPB SCH (07:53)
[2023-08-20] MEDS: Lisinopril 5 MG TAB PO SCH (07:56)
[2023-08-20] MEDS: Famotidine/PF 20 mg/2ml Vial SLOW IVP SCH ×2 (07:57→19:30)
[2023-08-20] MEDS: Morphine 2 MG/ML VIAL SLOW IVP PRN ×2 (16:01→20:19)
[2023-08-20] MEDS ORDERED: Phenol 177 ML BOT PO PRN (16:24)
[2023-08-21 07:03] LABS: Anion Gap 13 mmol/L (10-20); BUN (Urea Nitrogen) Less than 4 mg/dL (8.9-20.6); Calc. Creatinine Clearance 174 mL/min (70-130); Calcium 8.8 mg/dL (7.8-10.44); Carbon Dioxide 20 mmol/L (22-29); Chloride 103 mmol/L (98-107); Estimated GFR 118; Glucose 188 mg/dL (70-105); Potassium 3.6 mmol/L (3.5-5.1); Sodium 132 mmol/L (136-145)
[2023-08-21 08:11] VITALS: TEMP 97.6
[2023-08-21] MEDS: Fenofibrate Nanocrystallized 145 MG TAB PO SCH (08:43)
[2023-08-21] MEDS: Famotidine/PF 20 mg/2ml Vial SLOW IVP SCH (08:43)
[2023-08-21] MEDS: Famotidine 20 MG TAB PO SCH (08:43)
[2023-08-21] MEDS: Lisinopril 5 MG TAB PO SCH (08:43)
[2023-08-21 08:44] VITALS: BP 119/72
[2023-08-21] MEDS: D5 1/2 NS w/20 mEq KCL 1,000 ML IV PRN (08:44)
== END 2023-08-21 11:55 | disposition home or self-care (01) | DRG 438 ==
LOC: ERS 18:01 → T4-A 20:27 → OBSVTOIN 20:27 → IMCU/EMU 08-19 11:35
PROVIDERS: ADMIT Student in an Organized Health Care Education/Training Program; ATTEND Hospitalist
DX: K85.91 Acute pancreatitis with uninfected necrosis, unspecified (principal); F17.210 Nicotine dependence, cigarettes, uncomplicated; I10 Essential (primary) hypertension; E11.10 Type 2 diabetes mellitus with ketoacidosis without coma; Z98.890 Other specified postprocedural states; Z79.84 Long term (current) use of oral hypoglycemic drugs; Z79.899 Other long term (current) drug therapy
CPT/HCPCS: 36415; 36416; 71045; 74177; 80048; 80053; 80061; 80306; 80307; 81001; 82010; 82550; 83036; 83605; 83690; 83735; 84100; 84478; 84484; 85025; 93005; J1815; J1885; J2270; J2272; J2405; J3411; J3475; J3480; J3490; J7050; J7120; Q9967; S0028